=== PATIENT | female | born 1935 | race Caucasian/White ===

== ENCOUNTER → 2016-02-29 | Outpatient (CLI) | payer MEDICARE ==
[~2016-02-29] MED LIST: ACTI300C; AXID150C; BABY81CH; CETI10TA; COLA100C2; FERR325T; HYDR-727; MAG-TAB; MAGN500T2; MILKSUS; NAFCILLIN; PATANOL; PROZ40CA; SALISOL7; SING10TA31; TOPROL XL; VALS80CA; VICO5TAB; ZOCO40TA; [UNRECOGNIZED DRUG - OTHER]
[2016-02-29 18:30] LABS: INR 0.98
[2016-02-29 18:35] LABS: ALBUMIN 3.9 GM/DL (3.2-5.2); ALBUMIN/GLOBULIN RATIO 1.03 (1.00-1.93); BILIRUBIN,DIRECT 0.1 MG/DL (0.0-0.2); BILIRUBIN,TOTAL 0.4 MG/DL (0.2-1.0); TOTAL PROTEIN 7.7 GM/DL (6.4-8.2)
== END ==
LOC: M SMT 10:19
PROVIDERS: ATTEND Internal Medicine Gastroenterology
DX: R19.4 Change in bowel habit (principal); R10.13 Epigastric pain; R94.5 Abnormal results of liver function studies; K21.9 Gastro-esophageal reflux disease without esophagitis; K73.0 Chronic persistent hepatitis, not elsewhere classified

== ENCOUNTER → 2016-03-25 | Outpatient (REF) | payer MEDICARE | LOC: M LAB REF 11:24 | PROVIDERS: ATTEND Internal Medicine Gastroenterology | DX: K75.81 Nonalcoholic steatohepatitis (NASH) (principal); K74.3 Primary biliary cirrhosis; E55.9 Vitamin D deficiency, unspecified; K21.9 Gastro-esophageal reflux disease without esophagitis; R14.0 Abdominal distension (gaseous); R14.1 Gas pain; R10.13 Epigastric pain; R11.0 Nausea; R19.4 Change in bowel habit ==

== ENCOUNTER 2016-04-02 16:40 | Emergency (ER) | payer MEDICARE ==
--- NOTE | 2016-04-02 20:32 | REP ---
Clinical: Trauma. Technique: AP view of the pelvis with neutral and frog lateral views of the right hip. Findings: Symmetric degenerative changes are appreciated. No acute fracture or dislocation identified. Impression: Degenerative changes without acute fracture or dislocation. Signed by Israel Padron MD 04/02/2016 08:24 P
--- NOTE | 2016-04-02 20:35 | REP ---
Clinical: Trauma. Technique: Frontal view of the chest with multiple views of the bilateral hemithoraces. Comparison: Chest x-ray dated 12/10/2013. Findings: Frontal view of the chest demonstrates stable cardiomegaly and tortuous thoracic aorta. Lung ramos demonstrate diffuse chronic interstitial changes without acute consolidation, contusion, effusion, or pneumothorax. Skeletal structures demonstrate age-related osteopenia and degenerative changes. No obvious acute rib fracture identified. Impression: Chronic stable changes. No obvious acute rib fracture. Signed by Israel Padron MD 04/02/2016 08:26 P
--- NOTE | 2016-04-02 20:36 | REP ---
Clinical: Trauma. Technique: AP, lateral, bilateral oblique views of the lumbosacral spine. Comparison: 07/08/2009. Findings: Compression fracture at L2 is appreciated and relatively acute when compared to 2009. Correlation with physical examination and CT is warranted for further evaluation. The remainder of the examination demonstrates osteopenia and moderate to advanced multilevel degenerative changes. Impression: Compression fracture at L2 of indeterminate age. Correlation with physical examination is warranted and CT may be obtained for further investigation. Signed by Israel Padron MD 04/02/2016 08:28 P
--- NOTE | 2016-04-02 22:40 | REPUSA ---
COMPARISON: August 08, 2009. CT L-SPINE with reformations: L1 through S1: There is no acute fracture in this patient status post fall. Since the prior exam, there has been further loss of the L2-3 disc space with near ankylosis of the L 2 and L3 vertebral bodies, caused by prior episode of discitis. There is no CT evidence of acute infe ction. The L2-3 disc creates a posterior osteophyte that mildly narrows the central canal and neural foramina at this level. There has been further degeneration of the L4-5 and L5-S1 discs, now demonstrating vacuum phenomenon. At L4-5, there is a diffuse disc bulge which produces central canal and neural foraminal stenosis. At L5-S1, there is facet arthrosis. IMPRESSION: 1. No evidence of acute lumbar fracture. 2. 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 No evidence of acute infection by C T criteria at this time. 3. Multilevel degenerative disc disease which produces chronic neural encroachment at multiple levels .
--- NOTE | 2016-04-02 23:35 | EDDOCDS ---
Physician Documentation [facility] Name: Berenice Pruitt Age: 80 yrs Sex: Female : 1935 Arrival Date: 04/02/2016 Time: 16:40 Bed I6 / 28 Private MD: Wolf Bolton Disposition: 04/02/16 23:13 Discharged to Home/Self Care. Impression: Fall on same level due to ice and snow, Other sprain of right hip, Abrasion of left back wall of thorax - with contusion. - Condition is Stable. - Discharge Instructions: Rib Contusion, Fall Prevention and Home Safety, Hip Pain. - Medication Reconciliation, Local Pharmacy Hours form. - Follow up: Wolf Bolton; When: 4 - 5 days; Reason: Recheck today's complaints, Continuance of care. Follow up: Emergency Department; When: As needed; Reason: Fever > 102F, Trouble breathing. - Problem is new. - Symptoms are unchanged. - Notes: gentle activity as tolerated. take frequent deep breaths to keep lungs expanding. use walker for next for days to ensure stability with walking. call for a follow up with your physician Historical: - Allergies: Ciprofloxacin (Rash); Cortisone Acetate (Swelling); Neurontin (Sleepy); Niacin (red); IV Dye (Hives); - Home Meds: 1. aspirin 81 mg Oral TbEC once daily (Last dose: 04/02/2016 10:00) 2. magnesium oxide 400 mg Oral cap twice a day (Last dose: 04/02/2016 10:00) 3. Protonix 40 mg Oral TbEC 1 tab 2 times per day (Last dose: 04/02/2016 10:00) 4. Carafate 1 gram Oral tab as needed (Last dose: Unknown) 5. Zyrtec 10 mg Oral tab 1 tab once daily (Last dose: 04/02/2016 10:00) 6. losartan potassium 100 mg daily (Last dose: 04/02/2016 10:00) 7. Metoprolol Tartrate 12.5 Oral once daily (Last dose: 04/02/2016 10:00) 8. simvastatin 40 mg Oral tab 1 tab once daily (Last dose: 04/02/2016 10:00) 9. ursodiol 300 mg 2 capds Oral cap 2 times per day (Last dose: 04/02/2016 10:00) 10. fluoxetine 20 mg Oral cap 1 cap once daily (Last dose: 04/02/2016 10:00) 11. Vitamin D Oral 1,000 unit daily (Last dose: 04/02/2016 10:00) 12. Centrum Silver oral tab daily (Last dose: 04/02/2016 10:00) 13. breol inhaler daily daily (Last dose: 04/02/2016 10:00) 14. Pataday 0.2 % ophthalmic drop 1 drop once daily (Last dose: 04/02/2016 10:00) - PMHx: Asthma; Hypercholesterolemia; Primary Biliary Cirrhosis; Hypertension; GERD; - PSHx: Hysterectomy; Cholecystectomy; Tonsillectomy; Orthopedic Surgery; - Family history: Not pertinent. - : The pt / caregiver states he / she is not on anticoagulants. Home medication list is obtained from the patient. - Exposure Risk Screening:: None identified. Vital Signs: 04/02 16:42 BP 134 / 81; Pulse 67; Resp 17; Temp 96.2(O); Pulse Ox 95% on R/A; Weight 80.74 kg / lr2 178 lbs (R); Height 5 ft. 1 in. (154.94 cm) (R); Pain 10/10; 23:32 BP 162 / 90; Pulse 71; Resp 16; Temp 98.2(O); Pulse Ox 97% on R/A; jo3 16:42 Body Mass Index 33.63 (80.74 kg, 154.94 cm) lr2 MDM: 18:20 Rib Unilat W/PA Chest Only Ordered. EDMS 18:20 Hip,AP,LAT to include Pelvis Ordered. EDMS 18:22 Spine. Lumbosacral, Complete Ordered. EDMS 18:30 Financial registration complete. gjb 19:32 [facility] [place] was scanned into [employer] and attached to record. gjb 21:04 CT Spine, Lumbar W/o Contrast Ordered. EDMS Signatures: Dispatcher [employer] EDMS Vanessa LuaRN RN alicia3 Teddy Byrd PADebra PAPrettyC ar2 Hiral Mccloud RN RN Magi Gutierrez The chart was reviewed and I authenticate all verbal orders and agree with the evaluation and treatment provided.Attachments: 19:32 [facility] Payment Agreement gjb MTDD
--- NOTE | 2016-04-02 23:35 | EDDOCDS ---
Nurse's Notes [facility] Name: Berenice Pruitt Age: 80 yrs Sex: Female : 1935 Arrival Date: 04/02/2016 Time: 16:40 Bed I6 / 28 Private MD: Wolf Bolton Diagnosis: Fall on same level due to ice and snow;Other sprain of right hip;Abrasion of left back wall of thorax-with contusion Presentation: 04/02 16:54 Presenting complaint: Patient states: slipped on ice yesterday and fell down 2 steps. dsf pt c/o bilateral rib pain and it hurts to take a deep breath. pt also c/o right hip pain. Adult Sepsis Screening: The patient does not have new or worsening altered mentation. Patient's respiratory rate is less than 22. Systolic blood pressure is greater than 100. Patient has a qSOFA score of 0- Negative Sepsis Screen. Suicide/Homicide risk assessment- the patient denies having any suicidal and/or homicidal ideations and does not present with any other emotional, behavioral or mental health complaints. Status: Patient is not a marketing services specialist or dependent. Transition of care: patient was not received from another setting of care. 16:54 Acuity: MARIA INES Level 4 dsf 16:54 Method Of Arrival: Walkin/Carried/Asstd dsf Triage Assessment: 17:00 General: Appears in no apparent distress, Behavior is appropriate for age, cooperative. dsf Pain: Location: left lateral anterior chest and right lateral anterior chest Pain currently is 8 out of 10 on a pain scale. At worst was 10 out of 10 on a pain scale. Respiratory: Reports pain with respiration. Musculoskeletal: Reports pain in left lateral anterior chest and right lateral anterior chest. Historical: - Allergies: Ciprofloxacin (Rash); Cortisone Acetate (Swelling); Neurontin (Sleepy); Niacin (red); IV Dye (Hives); - Home Meds: 1. aspirin 81 mg Oral TbEC once daily (Last dose: 04/02/2016 10:00) 2. magnesium oxide 400 mg Oral cap twice a day (Last dose: 04/02/2016 10:00) 3. Protonix 40 mg Oral TbEC 1 tab 2 times per day (Last dose: 04/02/2016 10:00) 4. Carafate 1 gram Oral tab as needed (Last dose: Unknown) 5. Zyrtec 10 mg Oral tab 1 tab once daily (Last dose: 04/02/2016 10:00) 6. losartan potassium 100 mg daily (Last dose: 04/02/2016 10:00) 7. Metoprolol Tartrate 12.5 Oral once daily (Last dose: 04/02/2016 10:00) 8. simvastatin 40 mg Oral tab 1 tab once daily (Last dose: 04/02/2016 10:00) 9. ursodiol 300 mg 2 capds Oral cap 2 times per day (Last dose: 04/02/2016 10:00) 10. fluoxetine 20 mg Oral cap 1 cap once daily (Last dose: 04/02/2016 10:00) 11. Vitamin D Oral 1,000 unit daily (Last dose: 04/02/2016 10:00) 12. Centrum Silver oral tab daily (Last dose: 04/02/2016 10:00) 13. breol inhaler daily daily (Last dose: 04/02/2016 10:00) 14. Pataday 0.2 % ophthalmic drop 1 drop once daily (Last dose: 04/02/2016 10:00) - PMHx: Asthma; Hypercholesterolemia; Primary Biliary Cirrhosis; Hypertension; GERD; - PSHx: Hysterectomy; Cholecystectomy; Tonsillectomy; Orthopedic Surgery; - Family history: Not pertinent. - : The pt / caregiver states he / she is not on anticoagulants. Home medication list is obtained from the patient. - Exposure Risk Screening:: None identified. Screenin:32 Screening information is obtained from the patient. Fall risk: No risks identified. jo3 Assistance ADL's: requires no assistance with activities of daily living. Abuse/DV Screen: The patient / caregiver reports he/she is: not in a situation that causes fear, pain or injury. Nutritional screening: No deficits noted. Advance Directives: There is no active DNR order. home support is adequate. Assessment: 20:00 General: Appears in no apparent distress, Behavior is appropriate for age, cooperative. mb9 Respiratory: Airway is patent Respiratory effort is even, unlabored. 21:24 Reassessment: Patient appears in no apparent distress at this time. General: Appears mb9 comfortable, Behavior is appropriate for age, cooperative, pt sitting in wheelchair. pt requests to stay in wheelchair. . Respiratory: Airway is patent Respiratory effort is even, unlabored. 22:30 Reassessment: Patient appears in no apparent distress at this time. No significant jo3 changes noted at this time. Awaiting results for disposition. Aware of plan of care . 23:31 General: Appears in no apparent distress, Behavior is appropriate for age, cooperative, jo3 pleasant. Neurological: No deficits noted. Level of Consciousness is awake, alert, Oriented to person, place, time. Respiratory: Airway is patent Respiratory effort is even, unlabored. Vital Signs: 16:42 BP 134 / 81; Pulse 67; Resp 17; Temp 96.2(O); Pulse Ox 95% on R/A; Weight 80.74 kg (R); lr2 Height 5 ft. 1 in. (154.94 cm) (R); Pain 10/10; 23:32 BP 162 / 90; Pulse 71; Resp 16; Temp 98.2(O); Pulse Ox 97% on R/A; jo3 16:42 Body Mass Index 33.63 (80.74 kg, 154.94 cm) lr2 Vitals: 16:42 Log In Time: April 02, 2016 at 16:40. lr2 ED Course: 16:42 Patient visited by Jennifer Mathur. lr2 16:42 Wolf Bolton is Private Physician. lr2 16:42 Patient moved to Waiting lr2 16:44 Patient moved to Pre RCE lr2 16:55 Triage Initiated dsf 17:59 [facility] ar2 17:59 Eulalia Trujillo MD is Attending Physician. ar2 17:59 Patient moved to I ar2 18:05 Patient visited by Mesha Hernandez RN. dls 18:11 Patient visited by Teddy Byrd PA-C. ar2 19:05 Patient visited by Dom Franco PCA. kb5 19:32 [facility] [place] Payment Agreement was scanned into [employer] and attached to record. gjb 20:00 Patient visited by Dom Franco PCA. kb5 21:06 Hip,AP,LAT to include Pelvis Returned. EDMS 21:06 Rib Unilat W/PA Chest Only Returned. EDMS 21:06 Spine. Lumbosacral, Complete Returned. EDMS 21:11 Patient visited by Dom Franco PCA. kb5 21:50 Patient visited by Dom Franco PCA. kb5 22:57 CT Spine, Lumbar W/o Contrast Returned. EDMS 23:12 Wolf Bolton is Referral Physician. ar2 23:20 Patient visited by Dom Franco PCA. kb5 23:32 The patient / caregiver is instructed regarding the plan of care and ED course. jo3 23:32 No IV's were initiated during this patient's visit. No procedures done that require jo3 assistance. Order Results: Radiology Order: Rib Unilat W/PA Chest Only Test: Rib Unilat W/PA Chest Only REASON FOR EXAMINATION: trauma, lateral/anterior lower ribs; Clinical: Trauma.; ; Technique: Frontal view of the chest with multiple views of the bilateral; hemithoraces.; ; Comparison: Chest x-ray dated 12/10/2013.; ; Findings:; Frontal view of the chest demonstrates stable cardiomegaly and tortuous thoracic; aorta. Lung ramos demonstrate diffuse chronic interstitial changes without; acute consolidation, contusion, effusion, or pneumothorax. Skeletal structures; demonstrate age-related osteopenia and degenerative changes. No obvious acute; rib fracture identified.; ; Impression:; Chronic stable changes.; No obvious acute rib fracture.; ; ; Signed by; Israel Padron MD 04/02/2016 08:26 P; Radiology Order: Hip,AP,LAT to include Pelvis Test: Hip,AP,LAT to include Pelvis REASON FOR EXAMINATION: Trauma; Clinical: Trauma.; ; Technique: AP view of the pelvis with neutral and frog lateral views of the; right hip.; ; Findings:; Symmetric degenerative changes are appreciated. No acute fracture or dislocation; identified.; ; Impression:; Degenerative changes without acute fracture or dislocation.; ; ; Signed by; Israel Padron MD 04/02/2016 08:24 P; Radiology Order: Spine. Lumbosacral, Complete Test: Spine. Lumbosacral, Complete REASON FOR EXAMINATION: Trauma; Clinical: Trauma.; ; Technique: AP, lateral, bilateral oblique views of the lumbosacral spine.; ; Comparison: 07/08/2009.; ; Findings:; Compression fracture at L2 is appreciated and relatively acute when compared to; 2009. Correlation with physical examination and CT is warranted for further; evaluation. The remainder of the examination demonstrates osteopenia and; moderate to advanced multilevel degenerative changes.; ; Impression:; Compression fracture at L2 of indeterminate age. Correlation with physical; examination is warranted and CT may be obtained for further investigation.; ; ; Signed by; Israel Padron MD 04/02/2016 08:28 P; Radiology Order: CT Spine, Lumbar W/o Contrast Test: CT Spine, Lumbar W/o Contrast REASON FOR EXAMINATION: L2 compression fx; ; COMPARISON: August 08, 2009.; ; CT L-SPINE with reformations:; ; L1 through S1:; There is no acute fracture in this patient status post fall.; Since the prior exam, there has been further loss of the L2-3 disc space with near ankylosis of the L; 2 and L3 vertebral bodies, caused by prior episode of discitis. There is no CT evidence of acute infe; ction. The L2-3 disc creates a posterior osteophyte that mildly narrows the central canal and neural; foramina at this level.; ; There has been further degeneration of the L4-5 and L5-S1 discs, now demonstrating vacuum phenomenon.; ; ; At L4-5, there is a diffuse disc bulge which produces central canal and neural foraminal stenosis.; ; At L5-S1, there is facet arthrosis.; ; ; IMPRESSION:; 1. No evidence of acute lumbar fracture.; 2. 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 No evidence of acute infection by C; T criteria at this time.; 3. Multilevel degenerative disc disease which produces chronic neural encroachment at multiple levels; .; ; Outcome: 23:13 Discharge ordered by Provider. ar2 23:32 Discharge Assessment: Patient awake, alert and oriented x 3. No cognitive and/or jo3 functional deficits noted. Patient verbalized understanding of disposition instructions. patient administered narcotics - no. The following High Risk Discharge criteria are identified: None. Discharged to home ambulatory, with family. Condition: stable. Discharge instructions given to patient, Instructed on discharge instructions, follow up and referral plans. Demonstrated understanding of instructions, Pt was receptive of discharge instructions/ teaching. Property sent home with patient. 23:34 CT Study completed. jo3 23:34 Patient left the ED. jo3 Signatures: Dispatcher [employer] EDMesha Mitchell, RN RN Vanessa PalumboRN RN jo3 Dom Franco, [employer] kb5 Teddy Byrd, PADebra PAHiral PadronRN RN Case BassettRN RN mb9 Magi Santana Laura lr2 Corrections: (The following items were deleted from the chart) 23:34 23:32 No special radiology studies were completed jo3 jo3 MTDD
--- NOTE | 2016-04-05 00:35 | EDDOCDS ---
Physician Documentation [facility] Name: Berenice Pruitt Age: 80 yrs Sex: Female : 1935 Arrival Date: 04/02/2016 Time: 16:40 Bed I6 / 28 Private MD: Wolf Bolton Disposition: 04/02/16 23:13 Discharged to Home/Self Care. Impression: Fall on same level due to ice and snow, Other sprain of right hip, Abrasion of left back wall of thorax - with contusion. - Condition is Stable. - Discharge Instructions: Rib Contusion, Fall Prevention and Home Safety, Hip Pain. - Medication Reconciliation, Local Pharmacy Hours form. - Follow up: Wolf Bolton; When: 4 - 5 days; Reason: Recheck today's complaints, Continuance of care. Follow up: Emergency Department; When: As needed; Reason: Fever > 102F, Trouble breathing. - Problem is new. - Symptoms are unchanged. - Notes: gentle activity as tolerated. take frequent deep breaths to keep lungs expanding. use walker for next for days to ensure stability with walking. call for a follow up with your physician Historical: - Allergies: Ciprofloxacin (Rash); Cortisone Acetate (Swelling); Neurontin (Sleepy); Niacin (red); IV Dye (Hives); - Home Meds: 1. aspirin 81 mg Oral TbEC once daily (Last dose: 04/02/2016 10:00) 2. magnesium oxide 400 mg Oral cap twice a day (Last dose: 04/02/2016 10:00) 3. Protonix 40 mg Oral TbEC 1 tab 2 times per day (Last dose: 04/02/2016 10:00) 4. Carafate 1 gram Oral tab as needed (Last dose: Unknown) 5. Zyrtec 10 mg Oral tab 1 tab once daily (Last dose: 04/02/2016 10:00) 6. losartan potassium 100 mg daily (Last dose: 04/02/2016 10:00) 7. Metoprolol Tartrate 12.5 Oral once daily (Last dose: 04/02/2016 10:00) 8. simvastatin 40 mg Oral tab 1 tab once daily (Last dose: 04/02/2016 10:00) 9. ursodiol 300 mg 2 capds Oral cap 2 times per day (Last dose: 04/02/2016 10:00) 10. fluoxetine 20 mg Oral cap 1 cap once daily (Last dose: 04/02/2016 10:00) 11. Vitamin D Oral 1,000 unit daily (Last dose: 04/02/2016 10:00) 12. Centrum Silver oral tab daily (Last dose: 04/02/2016 10:00) 13. breol inhaler daily daily (Last dose: 04/02/2016 10:00) 14. Pataday 0.2 % ophthalmic drop 1 drop once daily (Last dose: 04/02/2016 10:00) - PMHx: Asthma; Hypercholesterolemia; Primary Biliary Cirrhosis; Hypertension; GERD; - PSHx: Hysterectomy; Cholecystectomy; Tonsillectomy; Orthopedic Surgery; - Family history: Not pertinent. - : The pt / caregiver states he / she is not on anticoagulants. Home medication list is obtained from the patient. - Exposure Risk Screening:: None identified. Vital Signs: 04/02 16:42 BP 134 / 81; Pulse 67; Resp 17; Temp 96.2(O); Pulse Ox 95% on R/A; Weight 80.74 kg / lr2 178 lbs (R); Height 5 ft. 1 in. (154.94 cm) (R); Pain 10/10; 23:32 BP 162 / 90; Pulse 71; Resp 16; Temp 98.2(O); Pulse Ox 97% on R/A; jo3 16:42 Body Mass Index 33.63 (80.74 kg, 154.94 cm) lr2 MDM: 18:20 Rib Unilat W/PA Chest Only Ordered. EDMS 18:20 Hip,AP,LAT to include Pelvis Ordered. EDMS 18:22 Spine. Lumbosacral, Complete Ordered. EDMS 18:30 Financial registration complete. gjb 19:32 [facility] Payment Agreement was scanned into [employer] and attached to record. gjb 21:04 CT Spine, Lumbar W/o Contrast Ordered. EDMS 04/03 12:12 T-Sheet-- Draft Copy was scanned into [employer] and attached to record. lg 04/04 11:08 Radiology Report was scanned into [employer] and attached to record. gb Signatures: Dispatcher [employer] EDMS Madelin Elizbaeth, Reg Reg gb Gonzalo Lockhart, Reg Reg lg Vanessa LuaRN RN jo3 Teddy Byrd PA-C PA-C ar2 Hiral Mccloud RN RN Magi Gutierrez The chart was reviewed and I authenticate all verbal orders and agree with the evaluation and treatment provided.Attachments: 04/02 19:32 [facility] Payment Agreement gjb 04/03 12:12 T-Sheet-- Draft Copy lg Chart Complete MTDD
--- NOTE | 2016-04-05 00:35 | EDDOCDS ---
Physician Documentation [facility] Name: Berenice Pruitt Age: 80 yrs Sex: Female : 1935 Arrival Date: 04/02/2016 Time: 16:40 Bed I6 / 28 Private MD: Wolf Bolton Disposition: 04/02/16 23:13 Discharged to Home/Self Care. Impression: Fall on same level due to ice and snow, Other sprain of right hip, Abrasion of left back wall of thorax - with contusion. - Condition is Stable. - Discharge Instructions: Rib Contusion, Fall Prevention and Home Safety, Hip Pain. - Medication Reconciliation, Local Pharmacy Hours form. - Follow up: Wolf Bolton; When: 4 - 5 days; Reason: Recheck today's complaints, Continuance of care. Follow up: Emergency Department; When: As needed; Reason: Fever > 102F, Trouble breathing. - Problem is new. - Symptoms are unchanged. - Notes: gentle activity as tolerated. take frequent deep breaths to keep lungs expanding. use walker for next for days to ensure stability with walking. call for a follow up with your physician Historical: - Allergies: Ciprofloxacin (Rash); Cortisone Acetate (Swelling); Neurontin (Sleepy); Niacin (red); IV Dye (Hives); - Home Meds: 1. aspirin 81 mg Oral TbEC once daily (Last dose: 04/02/2016 10:00) 2. magnesium oxide 400 mg Oral cap twice a day (Last dose: 04/02/2016 10:00) 3. Protonix 40 mg Oral TbEC 1 tab 2 times per day (Last dose: 04/02/2016 10:00) 4. Carafate 1 gram Oral tab as needed (Last dose: Unknown) 5. Zyrtec 10 mg Oral tab 1 tab once daily (Last dose: 04/02/2016 10:00) 6. losartan potassium 100 mg daily (Last dose: 04/02/2016 10:00) 7. Metoprolol Tartrate 12.5 Oral once daily (Last dose: 04/02/2016 10:00) 8. simvastatin 40 mg Oral tab 1 tab once daily (Last dose: 04/02/2016 10:00) 9. ursodiol 300 mg 2 capds Oral cap 2 times per day (Last dose: 04/02/2016 10:00) 10. fluoxetine 20 mg Oral cap 1 cap once daily (Last dose: 04/02/2016 10:00) 11. Vitamin D Oral 1,000 unit daily (Last dose: 04/02/2016 10:00) 12. Centrum Silver oral tab daily (Last dose: 04/02/2016 10:00) 13. breol inhaler daily daily (Last dose: 04/02/2016 10:00) 14. Pataday 0.2 % ophthalmic drop 1 drop once daily (Last dose: 04/02/2016 10:00) - PMHx: Asthma; Hypercholesterolemia; Primary Biliary Cirrhosis; Hypertension; GERD; - PSHx: Hysterectomy; Cholecystectomy; Tonsillectomy; Orthopedic Surgery; - Family history: Not pertinent. - : The pt / caregiver states he / she is not on anticoagulants. Home medication list is obtained from the patient. - Exposure Risk Screening:: None identified. Vital Signs: 04/02 16:42 BP 134 / 81; Pulse 67; Resp 17; Temp 96.2(O); Pulse Ox 95% on R/A; Weight 80.74 kg / lr2 178 lbs (R); Height 5 ft. 1 in. (154.94 cm) (R); Pain 10/10; 23:32 BP 162 / 90; Pulse 71; Resp 16; Temp 98.2(O); Pulse Ox 97% on R/A; jo3 16:42 Body Mass Index 33.63 (80.74 kg, 154.94 cm) lr2 MDM: 18:20 Rib Unilat W/PA Chest Only Ordered. EDMS 18:20 Hip,AP,LAT to include Pelvis Ordered. EDMS 18:22 Spine. Lumbosacral, Complete Ordered. EDMS 18:30 Financial registration complete. gjb 19:32 [facility] Payment Agreement was scanned into [employer] and attached to record. gjb 21:04 CT Spine, Lumbar W/o Contrast Ordered. EDMS 04/03 12:12 T-Sheet-- Draft Copy was scanned into [employer] and attached to record. lg 04/04 11:08 Radiology Report was scanned into [employer] and attached to record. gb Signatures: Dispatcher [employer] EDMS Madelin Elizabeth, Reg Reg gb Gonzalo Lockhart, Reg Reg lg Vanessa LuaRN RN jo3 Teddy Byrd PA-C PA-C ar2 Hiral Mccloud RN RN Magi Gutierrez The chart was reviewed and I authenticate all verbal orders and agree with the evaluation and treatment provided.Attachments: 04/02 19:32 [facility] Payment Agreement gjb 04/03 12:12 T-Sheet-- Draft Copy lg Chart Complete MTDD
--- NOTE | 2016-04-05 00:35 | EDDOCDS ---
Nurse's Notes [facility] Name: Berenice Pruitt Age: 80 yrs Sex: Female : 1935 Arrival Date: 04/02/2016 Time: 16:40 Bed I6 / 28 Private MD: Wolf Bolton Diagnosis: Fall on same level due to ice and snow;Other sprain of right hip;Abrasion of left back wall of thorax-with contusion Presentation: 04/02 16:54 Presenting complaint: Patient states: slipped on ice yesterday and fell down 2 steps. dsf pt c/o bilateral rib pain and it hurts to take a deep breath. pt also c/o right hip pain. Adult Sepsis Screening: The patient does not have new or worsening altered mentation. Patient's respiratory rate is less than 22. Systolic blood pressure is greater than 100. Patient has a qSOFA score of 0- Negative Sepsis Screen. Suicide/Homicide risk assessment- the patient denies having any suicidal and/or homicidal ideations and does not present with any other emotional, behavioral or mental health complaints. Status: Patient is not a customer service assistant or dependent. Transition of care: patient was not received from another setting of care. 16:54 Acuity: MARIA INES Level 4 dsf 16:54 Method Of Arrival: Walkin/Carried/Asstd dsf Triage Assessment: 17:00 General: Appears in no apparent distress, Behavior is appropriate for age, cooperative. dsf Pain: Location: left lateral anterior chest and right lateral anterior chest Pain currently is 8 out of 10 on a pain scale. At worst was 10 out of 10 on a pain scale. Respiratory: Reports pain with respiration. Musculoskeletal: Reports pain in left lateral anterior chest and right lateral anterior chest. Historical: - Allergies: Ciprofloxacin (Rash); Cortisone Acetate (Swelling); Neurontin (Sleepy); Niacin (red); IV Dye (Hives); - Home Meds: 1. aspirin 81 mg Oral TbEC once daily (Last dose: 04/02/2016 10:00) 2. magnesium oxide 400 mg Oral cap twice a day (Last dose: 04/02/2016 10:00) 3. Protonix 40 mg Oral TbEC 1 tab 2 times per day (Last dose: 04/02/2016 10:00) 4. Carafate 1 gram Oral tab as needed (Last dose: Unknown) 5. Zyrtec 10 mg Oral tab 1 tab once daily (Last dose: 04/02/2016 10:00) 6. losartan potassium 100 mg daily (Last dose: 04/02/2016 10:00) 7. Metoprolol Tartrate 12.5 Oral once daily (Last dose: 04/02/2016 10:00) 8. simvastatin 40 mg Oral tab 1 tab once daily (Last dose: 04/02/2016 10:00) 9. ursodiol 300 mg 2 capds Oral cap 2 times per day (Last dose: 04/02/2016 10:00) 10. fluoxetine 20 mg Oral cap 1 cap once daily (Last dose: 04/02/2016 10:00) 11. Vitamin D Oral 1,000 unit daily (Last dose: 04/02/2016 10:00) 12. Centrum Silver oral tab daily (Last dose: 04/02/2016 10:00) 13. breol inhaler daily daily (Last dose: 04/02/2016 10:00) 14. Pataday 0.2 % ophthalmic drop 1 drop once daily (Last dose: 04/02/2016 10:00) - PMHx: Asthma; Hypercholesterolemia; Primary Biliary Cirrhosis; Hypertension; GERD; - PSHx: Hysterectomy; Cholecystectomy; Tonsillectomy; Orthopedic Surgery; - Family history: Not pertinent. - : The pt / caregiver states he / she is not on anticoagulants. Home medication list is obtained from the patient. - Exposure Risk Screening:: None identified. Screenin:32 Screening information is obtained from the patient. Fall risk: No risks identified. jo3 Assistance ADL's: requires no assistance with activities of daily living. Abuse/DV Screen: The patient / caregiver reports he/she is: not in a situation that causes fear, pain or injury. Nutritional screening: No deficits noted. Advance Directives: There is no active DNR order. home support is adequate. Assessment: 20:00 General: Appears in no apparent distress, Behavior is appropriate for age, cooperative. mb9 Respiratory: Airway is patent Respiratory effort is even, unlabored. 21:24 Reassessment: Patient appears in no apparent distress at this time. General: Appears mb9 comfortable, Behavior is appropriate for age, cooperative, pt sitting in wheelchair. pt requests to stay in wheelchair. . Respiratory: Airway is patent Respiratory effort is even, unlabored. 22:30 Reassessment: Patient appears in no apparent distress at this time. No significant jo3 changes noted at this time. Awaiting results for disposition. Aware of plan of care . 23:31 General: Appears in no apparent distress, Behavior is appropriate for age, cooperative, jo3 pleasant. Neurological: No deficits noted. Level of Consciousness is awake, alert, Oriented to person, place, time. Respiratory: Airway is patent Respiratory effort is even, unlabored. Vital Signs: 16:42 BP 134 / 81; Pulse 67; Resp 17; Temp 96.2(O); Pulse Ox 95% on R/A; Weight 80.74 kg (R); lr2 Height 5 ft. 1 in. (154.94 cm) (R); Pain 10/10; 23:32 BP 162 / 90; Pulse 71; Resp 16; Temp 98.2(O); Pulse Ox 97% on R/A; jo3 16:42 Body Mass Index 33.63 (80.74 kg, 154.94 cm) lr2 Vitals: 16:42 Log In Time: April 02, 2016 at 16:40. lr2 ED Course: 16:42 Patient visited by Jennifer Mathur. lr2 16:42 Wolf Bolton is Private Physician. lr2 16:42 Patient moved to Waiting lr2 16:44 Patient moved to Pre RCE lr2 16:55 Triage Initiated dsf 17:59 [facility] ar2 17:59 Eulalia Trujillo MD is Attending Physician. ar2 17:59 Patient moved to I ar2 18:05 Patient visited by Mesha Hernandez RN. dls 18:11 Patient visited by Teddy Byrd PA-C. ar2 19:05 Patient visited by Dom Franco PCA. kb5 19:32 [facility] Payment Agreement was scanned into [employer] and attached to record. gjb 20:00 Patient visited by Dom Franco PCA. kb5 21:06 Hip,AP,LAT to include Pelvis Returned. EDMS 21:06 Rib Unilat W/PA Chest Only Returned. EDMS 21:06 Spine. Lumbosacral, Complete Returned. EDMS 21:11 Patient visited by Dom Franco PCA. kb5 21:50 Patient visited by Dom Franco PCA. kb5 22:57 CT Spine, Lumbar W/o Contrast Returned. EDMS 23:12 Wolf Bolton is Referral Physician. ar2 23:20 Patient visited by Dom Franco PCA. kb5 23:32 The patient / caregiver is instructed regarding the plan of care and ED course. jo3 23:32 No IV's were initiated during this patient's visit. No procedures done that require jo3 assistance. 04/03 12:12 T-Sheet-- Draft Copy was scanned into [employer] and attached to record. 04/04 11:08 Radiology Report was scanned into [employer] and attached to record. gb Order Results: Radiology Order: Rib Unilat W/PA Chest Only Test: Rib Unilat W/PA Chest Only REASON FOR EXAMINATION: trauma, lateral/anterior lower ribs; Clinical: Trauma.; ; Technique: Frontal view of the chest with multiple views of the bilateral; hemithoraces.; ; Comparison: Chest x-ray dated 12/10/2013.; ; Findings:; Frontal view of the chest demonstrates stable cardiomegaly and tortuous thoracic; aorta. Lung ramos demonstrate diffuse chronic interstitial changes without; acute consolidation, contusion, effusion, or pneumothorax. Skeletal structures; demonstrate age-related osteopenia and degenerative changes. No obvious acute; rib fracture identified.; ; Impression:; Chronic stable changes.; No obvious acute rib fracture.; ; ; Signed by; Israel Padron MD 04/02/2016 08:26 P; Radiology Order: Hip,AP,LAT to include Pelvis Test: Hip,AP,LAT to include Pelvis REASON FOR EXAMINATION: Trauma; Clinical: Trauma.; ; Technique: AP view of the pelvis with neutral and frog lateral views of the; right hip.; ; Findings:; Symmetric degenerative changes are appreciated. No acute fracture or dislocation; identified.; ; Impression:; Degenerative changes without acute fracture or dislocation.; ; ; Signed by; Israel Padron MD 04/02/2016 08:24 P; Radiology Order: Spine. Lumbosacral, Complete Test: Spine. Lumbosacral, Complete REASON FOR EXAMINATION: Trauma; Clinical: Trauma.; ; Technique: AP, lateral, bilateral oblique views of the lumbosacral spine.; ; Comparison: 07/08/2009.; ; Findings:; Compression fracture at L2 is appreciated and relatively acute when compared to; 2009. Correlation with physical examination and CT is warranted for further; evaluation. The remainder of the examination demonstrates osteopenia and; moderate to advanced multilevel degenerative changes.; ; Impression:; Compression fracture at L2 of indeterminate age. Correlation with physical; examination is warranted and CT may be obtained for further investigation.; ; ; Signed by; Israel Padron MD 04/02/2016 08:28 P; Radiology Order: CT Spine, Lumbar W/o Contrast Test: CT Spine, Lumbar W/o Contrast REASON FOR EXAMINATION: L2 compression fx; ; COMPARISON: August 08, 2009.; ; CT L-SPINE with reformations:; ; L1 through S1:; There is no acute fracture in this patient status post fall.; Since the prior exam, there has been further loss of the L2-3 disc space with near ankylosis of the L; 2 and L3 vertebral bodies, caused by prior episode of discitis. There is no CT evidence of acute infe; ction. The L2-3 disc creates a posterior osteophyte that mildly narrows the central canal and neural; foramina at this level.; ; There has been further degeneration of the L4-5 and L5-S1 discs, now demonstrating vacuum phenomenon.; ; ; At L4-5, there is a diffuse disc bulge which produces central canal and neural foraminal stenosis.; ; At L5-S1, there is facet arthrosis.; ; ; IMPRESSION:; 1. No evidence of acute lumbar fracture.; 2. 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 No evidence of acute infection by C; T criteria at this time.; 3. Multilevel degenerative disc disease which produces chronic neural encroachment at multiple levels; .; ; Outcome: 04/02 23:13 Discharge ordered by Provider. ar2 23:32 Discharge Assessment: Patient awake, alert and oriented x 3. No cognitive and/or jo3 functional deficits noted. Patient verbalized understanding of disposition instructions. patient administered narcotics - no. The following High Risk Discharge criteria are identified: None. Discharged to home ambulatory, with family. Condition: stable. Discharge instructions given to patient, Instructed on discharge instructions, follow up and referral plans. Demonstrated understanding of instructions, Pt was receptive of discharge instructions/ teaching. Property sent home with patient. 23:34 CT Study completed. jo3 23:34 Patient left the ED. jo3 Signatures: Dispatcher [employer] EDMS Mesha Hernandez, RN RN dls Madelin Elizabeth, Reg Reg gb Gonzalo Lockhart, Reg Reg lg Vanessa Lua RN RN jo3 Dom Franco, PATIENT OFFICE REP PATIENT OFFICE REP kb5 Teddy Byrd, PA-Tuan PA-Tuan ar2 Hiral MccloudRN RN Case BassettRN RN [id number] Magi Santana Laura lr2 Corrections: (The following items were deleted from the chart) 23:34 23:32 No special radiology studies were completed jo3 jo3 Chart Complete MTDD
== END 2016-04-02 23:34 | disposition home or self-care (01) ==
LOC: M ED 16:40
DX: S73.101A Unspecified sprain of right hip, initial encounter (principal); S20.211A Contusion of right front wall of thorax, initial encounter; S20.212A Contusion of left front wall of thorax, initial encounter; W00.0XXA Fall on same level due to ice and snow, initial encounter; Y92.018 Other place in single-family (private) house as the place of occurrence of the external cause; Y93.89 Activity, other specified; Y99.8 Other external cause status; M51.26 Other intervertebral disc displacement, lumbar region; I10 Essential (primary) hypertension; J45.909 Unspecified asthma, uncomplicated; E78.00 Pure hypercholesterolemia, unspecified; K21.9 Gastro-esophageal reflux disease without esophagitis; K74.3 Primary biliary cirrhosis; Z79.899 Other long term (current) drug therapy; Z79.82 Long term (current) use of aspirin; Z79.51 Long term (current) use of inhaled steroids; Z88.1 Allergy status to other antibiotic agents; Z88.8 Allergy status to other drugs, medicaments and biological substances; Z91.041 Radiographic dye allergy status

== ENCOUNTER → 2016-04-04 | Outpatient (REF) | payer MEDICARE | LOC: M LAB REF 16:54 | PROVIDERS: ATTEND Internal Medicine Nephrology | DX: N39.0 Urinary tract infection, site not specified (principal) ==

== ENCOUNTER → 2016-06-17 | Outpatient (REF) | payer MEDICARE ==
[2016-06-17 11:51] LABS: MEAN CORPUSCULAR HEMOGLOBIN 31.9 pg (27.0-33.0); MEAN CORPUSCULAR HGB CONC 33.7 g/dl (32.0-36.5); MEAN CORPUSCULAR VOLUME 94.9 fl (80.0-96.0); RED CELL DISTRIBUTION WIDTH 13.1 % (11.5-14.5); WHITE BLOOD COUNT 6.1 K/mm3 (4.0-10.0)
[2016-06-17 12:02] LABS: ALBUMIN 3.9 GM/DL (3.2-5.2); ALBUMIN/GLOBULIN RATIO 1.05 (1.00-1.93); BILIRUBIN,TOTAL 0.5 MG/DL (0.2-1.0); CALCIUM LEVEL 9.5 MG/DL (8.8-10.2); CREATININE FOR GFR 1.42 MG/DL (0.55-1.02); GLOMERULAR FILTRATION RATE 37.8 (>32); MAGNESIUM LEVEL 1.8 MG/DL (1.8-2.4); POTASSIUM SERUM 4.3 MEQ/L (3.5-5.1); TOTAL PROTEIN 7.6 GM/DL (6.4-8.2)
== END ==
LOC: M SFHCPLAZ 08:36
PROVIDERS: ATTEND Internal Medicine
DX: K74.3 Primary biliary cirrhosis (principal); R73.01 Impaired fasting glucose; E78.00 Pure hypercholesterolemia, unspecified; I10 Essential (primary) hypertension

== ENCOUNTER → 2016-09-02 | Outpatient (CLI) | payer MEDICARE ==
[2016-09-02 18:56] LABS: ALBUMIN 3.9 GM/DL (3.2-5.2); ALBUMIN/GLOBULIN RATIO 1.11 (1.00-1.93); BILIRUBIN,DIRECT 0.1 MG/DL (0.0-0.2); BILIRUBIN,TOTAL 0.5 MG/DL (0.2-1.0); TOTAL PROTEIN 7.4 GM/DL (6.4-8.2)
== END ==
LOC: M SMT 13:10
PROVIDERS: ATTEND Internal Medicine Gastroenterology
DX: K75.81 Nonalcoholic steatohepatitis (NASH) (principal); K74.3 Primary biliary cirrhosis; E55.9 Vitamin D deficiency, unspecified; K21.9 Gastro-esophageal reflux disease without esophagitis; R12 Heartburn; R14.0 Abdominal distension (gaseous); R14.1 Gas pain; R10.13 Epigastric pain; R11.0 Nausea; R19.4 Change in bowel habit

== ENCOUNTER → 2016-09-12 | Outpatient (REF) | payer MEDICARE | LOC: M LAB REF 17:26 | PROVIDERS: ATTEND Internal Medicine Nephrology | DX: N39.0 Urinary tract infection, site not specified (principal) ==

== ENCOUNTER → 2016-09-12 | Outpatient (REF) | payer MEDICARE | LOC: M LAB REF 12:36 | PROVIDERS: ATTEND Internal Medicine Gastroenterology | DX: K75.81 Nonalcoholic steatohepatitis (NASH) (principal); R10.13 Epigastric pain; R11.0 Nausea; K74.3 Primary biliary cirrhosis; E55.9 Vitamin D deficiency, unspecified; K21.9 Gastro-esophageal reflux disease without esophagitis; R12 Heartburn; R14.0 Abdominal distension (gaseous); R14.1 Gas pain; R19.4 Change in bowel habit ==

== ENCOUNTER → 2016-12-23 | Outpatient (REF) | payer MEDICARE ==
[2016-12-23 11:49] LABS: MEAN CORPUSCULAR HEMOGLOBIN 30.7 pg (27.0-33.0); MEAN CORPUSCULAR HGB CONC 32.9 g/dl (32.0-36.5); MEAN CORPUSCULAR VOLUME 93.2 fl (80.0-96.0); PLATELET COUNT, AUTOMATED 220 10^3/uL (150-450); RED CELL DISTRIBUTION WIDTH 12.6 % (11.5-14.5); WHITE BLOOD COUNT 5.5 10^3/uL (4.0-10.0)
[2016-12-23 12:09] LABS: ALBUMIN 3.6 GM/DL (3.2-5.2); ALBUMIN/GLOBULIN RATIO 1.09 (1.00-1.93); BILIRUBIN,TOTAL 0.4 MG/DL (0.2-1.0); CALCIUM LEVEL 10.2 MG/DL (8.8-10.2); CREATININE FOR GFR 1.42 MG/DL (0.55-1.02); GLOMERULAR FILTRATION RATE 37.7 (>32); MAGNESIUM LEVEL 1.8 MG/DL (1.8-2.4); POTASSIUM SERUM 4.3 MEQ/L (3.5-5.1); TOTAL PROTEIN 6.9 GM/DL (6.4-8.2)
== END ==
LOC: M SFHCPLAZ 08:22
PROVIDERS: ATTEND Internal Medicine
DX: K74.3 Primary biliary cirrhosis (principal); R73.01 Impaired fasting glucose; E78.00 Pure hypercholesterolemia, unspecified; I10 Essential (primary) hypertension

== ENCOUNTER → 2017-03-20 | Outpatient (REF) | payer MEDICARE | LOC: M LAB REF 13:02 | DX: N39.0 Urinary tract infection, site not specified (principal) | CPT/HCPCS: 87186 ==

== ENCOUNTER → 2017-06-28 | Outpatient (REF) | payer MEDICARE ==
[2017-06-28 12:56] LABS: ALBUMIN 3.8 GM/DL (3.2-5.2); ALBUMIN/GLOBULIN RATIO 0.97 (1.00-1.93); ALKALINE PHOSPHATASE 159 U/L (45-117); ALT/SGPT 60 U/L (12-78); ANION GAP 8 MEQ/L (8-16); AST/SGOT 46 U/L (7-37); BILIRUBIN,TOTAL 0.4 MG/DL (0.2-1.0); BLOOD UREA NITROGEN 30 MG/DL (7-18); CALCIUM LEVEL 9.6 MG/DL (8.8-10.2); CARBON DIOXIDE LEVEL 26 MEQ/L (21-32); CHLORIDE LEVEL 108 MEQ/L (98-107); CHOLESTEROL LEVEL 160 MG/DL (<200); CREATININE FOR GFR 1.28 MG/DL (0.55-1.30); GLOMERULAR FILTRATION RATE 42.5 (>32); GLUCOSE, FASTING 135 MG/DL (70-100); HDL CHOLESTEROL 43 MG/DL (>40); LDL CHOLESTEROL 76.8 MG/DL (<100); MAGNESIUM LEVEL 2.1 MG/DL (1.8-2.4); NON-HDL-C 117 MG/DL; POTASSIUM SERUM 4.4 MEQ/L (3.5-5.1); SODIUM LEVEL 142 MEQ/L (136-145); TOTAL PROTEIN 7.7 GM/DL (6.4-8.2); TRIGLYCERIDES LEVEL 201 MG/DL (<150)
[2017-06-28 13:49] LABS: ESTIMATED AVERAGE GLUCOSE 134 MG/DL (60-110); HEMOGLOBIN A1c 6.3 %
[2017-06-30 11:50] LABS: ALPHA FETOPROTEIN TUMOR QUANT 2.4 NG/ML (<8.1)
== END ==
LOC: M SFHCPLAZ 08:29
DX: K74.3 Primary biliary cirrhosis (principal); I10 Essential (primary) hypertension; E11.9 Type 2 diabetes mellitus without complications; E78.00 Pure hypercholesterolemia, unspecified
CPT/HCPCS: 83735

== ENCOUNTER → 2018-01-02 | Outpatient (REF) | payer MEDICARE ==
[2018-01-02 13:56] LABS: ESTIMATED AVERAGE GLUCOSE 131 MG/DL (60-110); HEMOGLOBIN A1c 6.2 %
[2018-01-02 14:27] LABS: ALPHA FETOPROTEIN TUMOR QUANT 5.3 NG/ML (<8.1)
[2018-01-02 14:30] LABS: BLOOD UREA NITROGEN 27 MG/DL (7-18); CARBON DIOXIDE LEVEL 27 MEQ/L (21-32); CHLORIDE LEVEL 106 MEQ/L (98-107); GLOMERULAR FILTRATION RATE 41.6 (>32); GLUCOSE, FASTING 128 MG/DL (70-100); POTASSIUM SERUM 4.6 MEQ/L (3.5-5.1); SODIUM LEVEL 142 MEQ/L (136-145)
[2018-01-02 14:31] LABS: ALBUMIN 4.1 GM/DL (3.2-5.2); ALBUMIN/GLOBULIN RATIO 1.11 (1.00-1.93); ALKALINE PHOSPHATASE 130 U/L (45-117); ALT/SGPT 52 U/L (12-78); AST/SGOT 37 U/L (7-37); BILIRUBIN,TOTAL 0.4 MG/DL (0.2-1.0); TOTAL PROTEIN 7.8 GM/DL (6.4-8.2)
[2018-01-02 14:33] LABS: ANION GAP 9 MEQ/L (8-16)
== END ==
LOC: M SFHCPLAZ 09:43
DX: K74.3 Primary biliary cirrhosis (principal); E11.9 Type 2 diabetes mellitus without complications
CPT/HCPCS: 80053

== ENCOUNTER → 2018-03-26 | Outpatient (REF) | payer MEDICARE | LOC: M LAB REF 13:12 | PROVIDERS: ATTEND Internal Medicine Nephrology | DX: N39.0 Urinary tract infection, site not specified (principal) ==

== ENCOUNTER → 2018-05-01 | Outpatient (REF) | payer MEDICARE ==
[2018-05-01 10:38] LABS: HEMATOCRIT 41.8 % (36.0-47.0); HEMOGLOBIN 13.6 g/dl (12.0-15.5); MEAN CORPUSCULAR HEMOGLOBIN 29.7 pg (27.0-33.0); MEAN CORPUSCULAR HGB CONC 32.5 g/dl (32.0-36.5); MEAN CORPUSCULAR VOLUME 91.3 fl (80.0-96.0); PLATELET COUNT, AUTOMATED 251 10^3/uL (150-450); RED BLOOD COUNT 4.58 10^6/uL (4.00-5.40); WHITE BLOOD COUNT 6.5 10^3/uL (4.0-10.0)
[2018-05-01 10:58] LABS: HEMOGLOBIN A1c 6.5 %
[2018-05-01 11:12] LABS: ALBUMIN 3.8 GM/DL (3.2-5.2); BILIRUBIN,TOTAL 0.4 MG/DL (0.2-1.0); CALCIUM LEVEL 9.3 MG/DL (8.8-10.2); CHOLESTEROL RISK RATIO 4.75 (<5); CREATININE FOR GFR 1.35 MG/DL (0.55-1.30); GLOMERULAR FILTRATION RATE 39.9 (>32); POTASSIUM SERUM 4.8 MEQ/L (3.5-5.1); TOTAL PROTEIN 7.7 GM/DL (6.4-8.2)
== END ==
LOC: M SFHCPLAZ 08:46
PROVIDERS: ATTEND Internal Medicine
DX: E11.9 Type 2 diabetes mellitus without complications (principal); K74.3 Primary biliary cirrhosis; E78.00 Pure hypercholesterolemia, unspecified; I10 Essential (primary) hypertension

== ENCOUNTER → 2018-07-25 | Outpatient (REF) | payer MEDICARE | LOC: M LAB REF 17:08 | PROVIDERS: ATTEND Internal Medicine Nephrology | DX: N39.0 Urinary tract infection, site not specified (principal) ==

== ENCOUNTER → 2018-11-05 | Outpatient (REF) | payer MEDICARE ==
[2018-11-05 12:49] LABS: ALBUMIN 3.6 GM/DL (3.2-5.2); BILIRUBIN,TOTAL 0.5 MG/DL (0.2-1.0); CALCIUM LEVEL 9.3 MG/DL (8.8-10.2); CHOLESTEROL RISK RATIO 4.615 (<5); CREATININE FOR GFR 1.39 MG/DL (0.55-1.30); GLOMERULAR FILTRATION RATE 38.5 (>32); MAGNESIUM LEVEL 2.1 MG/DL (1.8-2.4); POTASSIUM SERUM 4.6 MEQ/L (3.5-5.1); TOTAL PROTEIN 7.6 GM/DL (6.4-8.2)
[2018-11-05 13:07] LABS: CREATININE, URINE 93.2 MG/DL; MAU/CREAT RATIO 116.9 MCG/MG (0.0-30.0)
== END ==
LOC: M SFHCPLAZ 09:29
PROVIDERS: ATTEND Internal Medicine
DX: E78.00 Pure hypercholesterolemia, unspecified (principal); K74.3 Primary biliary cirrhosis; I10 Essential (primary) hypertension; R73.01 Impaired fasting glucose; Z79.899 Other long term (current) drug therapy; Z79.82 Long term (current) use of aspirin

== ENCOUNTER → 2018-12-07 | Outpatient (REF) | payer MEDICARE | LOC: M LAB REF 17:18 | PROVIDERS: ATTEND Internal Medicine Nephrology | DX: N18.3 Chronic kidney disease, stage 3 (moderate) (principal); N39.0 Urinary tract infection, site not specified; I12.9 Hypertensive chronic kidney disease with stage 1 through stage 4 chronic kidney disease, or unspecified chronic kidney disease ==

== ENCOUNTER 2019-01-28 16:05 | Inpatient (IN) | payer MEDICARE ==
[~2019-01-28] VITALS: Ht 154.9 cm; Wt 83.1 kg
[2019-01-28 16:58] LABS: BASO % 0.4 % (0.0-1.0); EOS # 0.3 10^3/uL (0.0-0.5); EOS % 2.9 % (0.0-3.0); HEMATOCRIT 42.1 % (36.0-47.0); HEMOGLOBIN 13.3 g/dl (12.0-15.5); LYMPH # 2.1 10^3/uL (1.5-5.0); LYMPH % 18.5 % (24.0-44.0); MEAN CORPUSCULAR HEMOGLOBIN 29.6 pg (27.0-33.0); MEAN CORPUSCULAR HGB CONC 31.6 g/dl (32.0-36.5); MEAN CORPUSCULAR VOLUME 93.8 fl (80.0-96.0); MONO # 0.9 10^3/uL (0.0-0.8); NEUTROPHILS # 7.9 10^3/uL (1.5-8.5); NEUTROPHILS % 69.8 % (36.0-66.0); PLATELET COUNT, AUTOMATED 323 10^3/uL (150-450); RED BLOOD COUNT 4.49 10^6/uL (4.00-5.40); WHITE BLOOD COUNT 11.2 10^3/uL (4.0-10.0)
[2019-01-28] MEDS ORDERED: CENT1TAB PO (17:06)
[2019-01-28] MEDS ORDERED: URSO300C3 PO ×2 (17:06→18:15)
[2019-01-28] MEDS ORDERED: ASPI81TA85 PO (17:06)
[2019-01-28] MEDS ORDERED: LORA-622 PO (17:06)
[2019-01-28] MEDS ORDERED: OMEG12004 PO (17:06)
[2019-01-28] MEDS ORDERED: LOSA100T50 PO (17:06)
[2019-01-28] MEDS ORDERED: SIMV40TA20 PO (17:06)
[2019-01-28] MEDS ORDERED: CARA1TAB6 PO (17:06)
[2019-01-28] MEDS ORDERED: MAGN400C2 PO (17:06)
[2019-01-28] MEDS ORDERED: ZANT150T40 PO (17:06)
[2019-01-28] MEDS ORDERED: FLUT11IN INH (17:06)
[2019-01-28] MEDS ORDERED: ACET325C5 PO (17:06)
[2019-01-28] MEDS ORDERED: METO1TAB32 PO (17:06)
[2019-01-28] MEDS ORDERED: FLUO20CA19 PO (17:06)
[2019-01-28] MEDS ORDERED: BIOT10009 PO (17:06)
[2019-01-28 17:08] LABS: INR 1.12; PROTHROMBIN TIME 14.1 SECONDS (11.8-14.0)
[2019-01-28 17:09] LABS: PARTIAL THROMBOPLASTIN TIME 34.6 SECONDS (25.0-38.4)
[2019-01-28] MEDS ORDERED: HM C500T3 PO (17:09)
[2019-01-28] MEDS ORDERED: OCUVTAB4 PO (17:09)
[2019-01-28] MEDS ORDERED: NASA1SPR NARES (17:09)
[2019-01-28] MEDS ORDERED: OPCOSOL OU (17:09)
[2019-01-28] MEDS ORDERED: PATA0.2S OU (17:09)
[2019-01-28 17:31] LABS: CALCIUM LEVEL 10.2 MG/DL (8.8-10.2); CK-MB VALUE MASS 10.5 NG/ML (<3.6); CREATININE FOR GFR 1.62 MG/DL (0.55-1.30); FREE T4 0.68 NG/DL (0.76-1.46); GLOMERULAR FILTRATION RATE 32.2 (>32); MAGNESIUM LEVEL 2.2 MG/DL (1.8-2.4); MB/CK RELATIVE INDEX 2.16 (< OR =4); POTASSIUM SERUM 4.2 MEQ/L (3.5-5.1); THYROID STIMULATING HORMONE 3.25 uIU/ML (0.358-3.740); TROPONIN I 0.12 NG/ML (< 0.10)
--- NOTE | 2019-01-28 17:33 | REPVR ---
PROCEDURE INFORMATION: Exam: CT Head Without Contrast Exam date and time: 01/28/2019 4:21 PM Age: 83 years old Clinical history: Injury or trauma; Fall; Initial encounter; Blunt trauma (contusions or hematomas) TECHNIQUE: Imaging protocol: Computed tomography of the head without contrast. Radiation optimization: All CT scans at this facility use at least one of these dose optimization techniques: automated exposure control; mA and/or kV adjustment per patient size (includes targeted exams where dose is matched to clinical indication); or iterative reconstruction. COMPARISON: No relevant prior studies available. FINDINGS: Brain: Moderate diffuse cortical volume loss. Chronic small vessel ischemic changes in the bilateral periventricular white matter. Physiologic bilateral basal ganglia calcifications. No acute intracranial hemorrhage. No midline shift. Ventricles: There is a subtle slightly hyperdense lesion along the lateral wall of the body of the right lateral ventricle. This measures 6 mm x 5 mm x 7 mm. No hydrocephalus. Bones/joints: No acute fracture. Sinuses: Unremarkable as visualized. No acute sinusitis. Mastoid air cells: Visualized mastoid air cells are well aerated. Soft tissues: Unremarkable. IMPRESSION: 1. No acute intracranial abnormality is identified. 2. Subtle 7 mm lesion along the lateral wall of the right lateral ventricle. 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 If there are no prior studies available to establish stability, consider a followup head CT in 3-6 months. Electronically signed by: Mena Burnett On 01/28/2019 17:33:31 PM
--- NOTE | 2019-01-28 17:45 | REPVR ---
PROCEDURE INFORMATION: Exam: CT Cervical Spine Without Contrast Exam date and time: 01/28/2019 4:21 PM Age: 83 years old Clinical history: Injury or trauma; Fall; Initial encounter; Blunt trauma TECHNIQUE: Imaging protocol: Computed tomography images of the cervical spine without contrast. Radiation optimization: All CT scans at this facility use at least one of these dose optimization techniques: automated exposure control; mA and/or kV adjustment per patient size (includes targeted exams where dose is matched to clinical indication); or iterative reconstruction. COMPARISON: No relevant prior studies available. FINDINGS: Vertebrae: Slight reversal of the normal cervical lordosis. Degenerative change at the atlantodental articulation. Multilevel posterior facet joint arthropathy. Osseous fusion of the C2-C3 posterior facet joints. No acute fracture. Multilevel degenerative endplate changes, accentuated at C5-C6. Discs/Spinal canal/Neural foramina: Dorsal disc osteophyte complexes result in multilevel mild spinal canal stenosis, accentuated at C5-C6. Multilevel neural foraminal narrowing. Severe disc space narrowing at C5-C6. Moderate disc space narrowing at C4-C5 and C6-C7. Soft tissues: Unremarkable. Thyroid: Slightly hypodense 2.9 cm x 1.8 cm right thyroid lobe lesion. Lungs: Mild subpleural scarring in the lung apices. Vasculature: Atherosclerotic vascular calcifications. IMPRESSION: 1. No acute cervical spine fracture. 2. Multilevel cervical spondylosis. 3. Indeterminate right thyroid lobe lesion. Recommend followup with nonemergent thyroid ultrasound. COMMENT: In patients aged 35 years and older with an incidental thyroid nodule equal to or greater than 1.[address], MRI or extrathyroidal US, further evaluation with dedicated thyroid US is recommended for patients with normal life expectancy and without comorbidities. For smaller nodules without suspicious features, no further evaluation or follow up is recommended. Electronically signed by: Mena Burnett On 01/28/2019 17:45:36 PM
[2019-01-28] MEDS ORDERED: MOME0.1S AU (18:15)
[2019-01-28] MEDS ORDERED: GLUC750T13 PO (18:15)
[2019-01-28] MEDS ORDERED: DULO1CAP5 PO (18:15)
[2019-01-28] MEDS ORDERED: AMLO2.5T3 PO (18:15)
[2019-01-28] MEDS ORDERED: ONDA4TAB6 PO (18:15)
[2019-01-28] MEDS ORDERED: MAGN400T2 PO (18:15)
[2019-01-28] MEDS ORDERED: ALL10TAB29 PO (18:15)
[2019-01-28] MEDS ORDERED: VITA100066 PO (18:15)
[2019-01-28] MEDS ORDERED: BIOT1000 PO (18:15)
--- NOTE | 2019-01-28 18:49 | REP ---
REASON: Trauma. COMPARISON: None. FINDINGS: No acute fracture or destructive osseous lesion. Degenerative changes are seen involving the hip and knee. Electronically Signed by Luis Fernando Pryor DO 01/28/2019 07:52 P
--- NOTE | 2019-01-28 18:51 | REP ---
REASON FOR EXAM: Trauma. FINDINGS: No acute fracture or destructive osseous lesion. Retro and plantar calcaneal heel spurs are present. Electronically Signed by Luis Fernando Pryor DO 01/28/2019 07:53 P
--- NOTE | 2019-01-28 19:00 | REP ---
REASON FOR EXAM: Syncopal episode. COMPARISON: 12/10/2013. AP and lateral views were obtained. The technique utilized in obtaining the radiograph has magnified the cardiac silhouette and accentuated the interstitial markings. The cardiac silhouette is magnified by technique. Mild cardiomegaly can not be ruled out. The lung ramos are clear and unchanged. The osseous structures are stable and intact. IMPRESSION: No evidence of acute cardiopulmonary disease. Findings and technique as described above. Electronically Signed by Luis Fernando Pryor DO 01/28/2019 07:53 P
--- NOTE | 2019-01-28 19:10 | HPEPDOC ---
[facility] Medical History & Physical Date of Admission Jan 28, 2019 Date of Service: Jan 28, 2019 Primary Care Physician: Wolf Bolton Attending Physician: IQRA ZELAYA MD History and Physical TIME OF SERVICE: 8:30 PM CHIEF COMPLAINT: Loss of consciousness HISTORY OF PRESENT ILLNESS: This is an 83-year-old female who presented to the hospital after having 2 episodes where she lost consciousness today. The first occurred this morning; she remembers suddenly falling down to the ground. She is not sure why she fell, but she did feel a little bit dizzy; she may have lost consciousness during this episode. As a result of the fall, she hurt her left knee. The second episode occ urred this afternoon and was witnessed by her sons who report that she loss consciousness for 5 minutes; they didn't notice any seizure-like activity, but she did have bowel and bladder incontinence. The patient reports having a history of frequent falls due to unsteady gait because of hip osteoarthritis. She doesn't use any walking aids. REVIEW OF SYSTEMS: 12 point review of systems negative except as listed in HPI PAST MEDICAL/ SURGICAL HISTORY: Chronic hypertension. CKD 3 GERD Dyslipidemia Primary biliary cirrhosis Arrhythmias subtype unspecified Osteopenia Anxiety Obesity Aortic valve sclerosis Right upper abdominal incisional hernia Status post appendectomy Status post cholecystectomy Status post hysterectomy Status post hernia repair SOCIAL HISTORY: She quit smoking in her 20s FAMILY HISTORY: CAD COPD Chronic hypertension ALLERGIES: Please see below. HOME MEDICATIONS: Please see below. PHYSICAL EXAMINATION: VITAL SIGNS: Please see below. GEN: well nourished / well developed/ NAD INTEGUMENT: not flushed/ not jaundice / left knee is in a splint, the skin surrounding the kneecap is blue purple in color HEENT: normocephalic / atraumatic / lips acyanotic /mucus membranes moist and pink / sclera anicteric CVS: RRR/ NMRG / unable to appreciate carotid bruits /radial pulses intact, dorsalis pedis pulses diminished LUNGS: able to speak full sentences without stopping to take a breath / no coughing / lungs are clear to auscultation bilaterally on room air ABDOMEN: she has a right upper abdominal incisional hernia/ bowel sounds are present / the abdomen is tympanic on percussion, soft & not tender with palpation MSK/EXTREMITIES: range of motion intact in all 4 extremities NEURO: CN 2-12 are grossly intact / speech is not dysarthric / strength is 5 out of 5 in all extremities except for the left knee were assessment is limited because of her knees in a splint PSYCH: alert and oriented to person place and time/ able to understand and follow all commands LABORATORY DATA: See below. IMAGING: CT of the head " IMPRESSION: 1. No acute intracranial abnormality is identified. 2. Subtle 7 mm lesion along the lateral wall of the right lateral ventricle. 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 If there are no prior studies available to establish stability, consider a followup head CT in 3-6 months. " CT of the cervical spine " IMPRESSION: 1. No acute cervical spine fracture. 2. Multilevel cervical spondylosis. 3. Indeterminate right thyroid lobe lesion. Recommend followup with nonemergent thyroid ultrasound. Left lower leg tib-fib x-ray " FINDINGS: No acute fracture or destructive osseous lesion. Retro and plantar calcaneal heel spurs are present." X-ray of the left knee " IMPRESSION:Chronic changes as described above. A suprapatellar bursal effusion can not be ruled out." X-ray of the femur " FINDINGS: No acute fracture or destructive osseous lesion. Degenerative changes are seen involving the hip and knee." Chest x-ray " IMPRESSION: No evidence of acute cardiopulmonary disease. Findings and technique as described above." MICROBIOLOGY: Please see below. ASSESSMENT: Ms. Pruitt is an 83-year-old with a history of chronic hypertension, CKD 3, GERD, dyslipidemia, primary greatly cirrhosis, osteopenia, and unspecified types of arrhythmias will be admitted for evaluation of syncope. PLAN: 1. Syncope Cause to be determined The troponin is slightly elevated Echo from 2009 showed moderate aortic valve sclerosis CT of the head and neurological exam were unremarkable BUN is elevated, therefore she may be slightly dehydrated. Plan: Admit to PCU/Telemetry /IV fluids/precautions/ f/u orthostats, work up to r/o ACS and echocardiogram to rule out worsening aortic valvulopathy / will not order MRI of the head because her exam was nonfocal / will cancel UA bc she doesn't have abdominal pain / hold cetirizine because it can cause somnolence / if the workup is negative, the daytime team may consider referring her a cylinder inspector for repeat Holter monitor or Event monitor 2. Elevated troponin She does not have chest pain Possibly due to CKD 3 versus ACS EKG as above. Plan: Telemetry/follow-up serial troponin, BNP, serial EKGs, lipid panel, A1c and echocardiogram/continue with aspirin and simvastatin/nitroglycerin when n ecessary for chest pain 3. Benign meningioma. Plan: No need for additional testing 4. Right thyroid lobe lesion TSH. Plan: Follow-up thyroid ultrasound 5. Left knee trauma Plan: Continue left knee splint/Tylenol for pain / PT eval to see if she needs a walking aide 6. Chronic hypertension Plan: Continue amlodipine, losartan and metoprolol 7. CKD 3 At baseline Plan: Follow-up BMP 8. Primary biliary cirrhosis Plan: Continue with ursodiol 9. Obesity BMI 33.1 This complicates care Plan: Follow-up A1c to rule out coexisting diabetes / she can f/u w her PCP for STOP BANG questionnaire & tubing mill operator consult DVT PROPHYLAXIS: Lovenox DISPOSITION: Likely home after more than 2 midnight stay Vital Signs Vital Signs Date Time Temp Pulse Resp B/P (MAP) Pulse Ox O2 Delivery O2 Flow Rate FiO2 01/28/19 18:51 97.4 01/28/19 18:49 71 20 97 Room Air 01/28/19 17:30 134/85 (101) Laboratory Data Labs 24H Laboratory Tests 2 01/28/19 16:36: Bedside Glucose (Misc Panel) 140H 01/28/19 16:45: Immature Granulocyte % (Auto) 0.4, Neutrophils (%) (Auto) 69.8H, Lymphocytes (%) (Auto) 18.5L, Monocytes (%) (Auto) 8.0H, Eosinophils (%) (Auto) 2.9, Basophils (%) (Auto) 0.4, Neutrophils # (Auto) 7.9, Lymphocytes # (Auto) 2.1, Monocytes # (Auto) 0.9H, Eosinophils # (Auto) 0.3, Basophils # (Auto) 0.0, Nucleated Red Blood Cells % (auto) 0.0, Prothrombin Time 14.1H, Prothromb Time International Ratio 1.12, Activated Partial Thromboplast Time 34.6, Anion Gap 10, Glomerular Filtration Rate 32.2, Calcium Level 10.2, Magnesium Level 2.2, Total Creatine Kinase 485H, Creatine Kinase MB 10.5H, Creatine Kinase MB Relative Index 2.16, Troponin I 0.12H, Thyroid Stimulating Hormone (TSH) 3.250, Free Thyroxine 0.68L CBC/BMP Laboratory Tests 01/28/19 16:45 Home Medications Scheduled Acetaminophen (Tylenol) 325 Mg Capsule, 2 TBS PO QHS Amlodipine Besylate (Amlodipine Besylate) 2.5 Mg Tablet, 2.5 MG PO DAILY Aspirin (Aspir 81) 81 Mg Tablet.dr, 81 MG PO DAILY Biotin (Biotin) 1 Mg Tablet, 1,000 MCG PO 2XW Cetirizine HCl (Cetirizine HCl) 10 Mg Tablet, 10 MG PO QHS Cholecalciferol (Vitamin D3) (Vitamin D3) 1,000 Unit Tablet, 1,000 UNIT PO 3XW MON/WED/FRI Cranberry Fruit Extract (Cranberry) 500 Mg Tablet, 500 MG PO DAILY Duloxetine Hcl (Duloxetine HCl) 30 Mg Capsule.dr, 30 MG PO DAILY Fluticasone Propionate (Flovent Hfa) 110 Mcg/Act Aer.w.adap, 2 PUFFS INH BID Glucosa Fonseca 2Kcl/Chondroitin Fonseca (Glucosamine-Chondroitin Tablet) 1 Each Tablet, 1 TAB PO BID Losartan Potassium (Losartan Potassium) 100 Mg Tablet, 100 MG PO QHS Magnesium Oxide (Magnesium Oxide) 400 Mg Tablet, 400 MG PO BID Metoprolol Succinate (Metoprolol Succinate) 25 Mg Tab.er.24h, 12.5 MG PO QHS Multivit-Min/FA/Lycopen/Lutein (Centrum Silver Tablet) 1 Each Tablet, 1 TAB PO DAILY Naphazoline HCl/Pheniramine (Opcon-A Eye Drops) 15 Ml Drops, 1 DROP OU DAILY Olopatadine HCl (Pataday) 0.2% 2.5ML Drops, 1 DROP OU QHS [place]-3/Dha/Epa/Fish Oil ([place]-3 Fish Oil 1,200 mg Sfgl) 1,200 Mg Capsule, 1 CAP PO BID Simvastatin (Simvastatin) 40 Mg Tablet, 40 MG PO QHS Triamcinolone Acetonide (Nasacort) 10.8 Ml [place], 2 SPRAY NARES DAILY Ursodiol (Ursodiol) 300 Mg Capsule, 300 MG PO QAM Ursodiol (Ursodiol) 300 Mg Capsule, 600 MG PO QHS Vit A/Vit C/Vit E/Zinc/Copper (Preservision Areds Tablet) 1 Each Tablet, 1 TAB PO BID Scheduled PRN Mometasone Furoate (Mometasone Furoate) 30 Ml Solution, 1 APLCT AU BID PRN for ITCHING Ondansetron (Ondansetron Odt) 4 Mg Tab.rapdis, 4 MG PO Q6H PRN for NAUSEA OR VOMITING Sucralfate (Carafate) 1 Gm Tablet, 1 GM PO BID PRN for DISCOMFORT Allergies Coded Allergies: ciprofloxacin (Verified Allergy, Mild, RASH, 01/28/19) Contrast Media (Verified Allergy, Unknown, X-RAY DYE, 07/09/09) rofecoxib (Verified Allergy, Unknown, 01/28/19) albuterol (Verified Adverse Reaction, Intermediate, DIFFICULTY BREATHING, 01/28/19) atorvastatin (Verified Adverse Reaction, Intermediate, HEART PALPITATIONS, 01/28/19) ipratropium (Verified Adverse Reaction, Intermediate, DIFFICULTY BREATHING, 01/28/19) gabapentin (Verified Adverse Reaction, Mild, DROWSINESS, 01/28/19) niacin (Verified Adverse Reaction, Mild, FLUSHING, 01/28/19) A-FIB/CHADSVASC A-FIB History Current/History of A-Fib/PAF?: No Current PO Anticoag Therapy: IQRA Villagomez MD Jan 28, 2019 19:10
--- NOTE | 2019-01-28 19:24 | REP ---
REASON: Trauma. There is tricompartmental marginal osteophytosis and mild medial compartmental narrowing. There is evidence of soft-tissue swelling superficial to the patella. IMPRESSION:Chronic changes as described above. A suprapatellar bursal effusion can not be ruled out. Electronically Signed by Luis Fernando Pryor DO 01/28/2019 07:53 P
[2019-01-28 19:25] VITALS: BP 139/85
[2019-01-28] MEDS ORDERED: MOM 30ML SUSPENSION UDC PO PRN (19:30)
[2019-01-28] MEDS ORDERED: NITROGLYCERIN 0.4 MG SUBL TABLET SL PRN (19:30)
[2019-01-28] MEDS: NS 500 ML IV SCH (19:30)
[2019-01-28] MEDS ORDERED: MAALOX 30 ML SUSP *UDC PO PRN (19:30)
[2019-01-28] MEDS: FLUTICASONE HFA 110 MCG 12 GM INHALER (FLOVENT) INH SCH (20:00)
[2019-01-28] MEDS ORDERED: ONDANSETRON 4 MG ORAL DISINTEGRATING TAB (Q0162 PER 1MG) PO PRN (21:30)
[2019-01-28] MEDS ORDERED: SUCRALFATE 1 GM TAB PO PRN (21:30)
[2019-01-28 22:31] LABS: HEMOGLOBIN A1c 6.7 %
[2019-01-28 23:59] VITALS: BP 137/73
[2019-01-29] VITALS (8 sets, daily range): BP systolic 117–150; BP diastolic 71–82
[2019-01-29] MEDS: METOPROLOL SUCC *XL* 25MG TAB (TopROL *XL*) PO SCH ×2 (02:24→21:15)
[2019-01-29] MEDS: MAGNESIUM OXIDE 400 MG TAB (MAG-OX) PO SCH ×3 (02:25→21:14)
[2019-01-29] MEDS: LOSARTAN 50 MG TAB PO SCH ×2 (02:25→21:16)
[2019-01-29] MEDS: URSODIOL 300 MG CAP PO SCH ×3 (02:26→21:17)
[2019-01-29] MEDS: OCUVITE 1 TAB PO SCH ×3 (02:26→21:17)
[2019-01-29] MEDS: DOCUSATE SODIUM 100 MG CAP PO SCH ×3 (02:26→21:13)
[2019-01-29] MEDS: SIMVASTATIN 40 MG TAB PO SCH ×2 (02:26→21:15)
[2019-01-29 04:49] LABS: HEMATOCRIT 35.9 % (36.0-47.0); HEMOGLOBIN 11.7 g/dl (12.0-15.5); MEAN CORPUSCULAR HEMOGLOBIN 30.2 pg (27.0-33.0); MEAN CORPUSCULAR HGB CONC 32.6 g/dl (32.0-36.5); MEAN CORPUSCULAR VOLUME 92.5 fl (80.0-96.0); PLATELET COUNT, AUTOMATED 268 10^3/uL (150-450); RED BLOOD COUNT 3.88 10^6/uL (4.00-5.40); WHITE BLOOD COUNT 9.2 10^3/uL (4.0-10.0)
[2019-01-29] MEDS: ACETAMINOPHEN TAB 650MG DOSE (2X325MG) PO PRN ×3 (05:00→16:12)
[2019-01-29] MEDS: NS 500 ML IV SCH (05:02)
[2019-01-29 05:13] LABS: ALBUMIN 3.3 GM/DL (3.2-5.2); BILIRUBIN,TOTAL 0.4 MG/DL (0.2-1.0); CREATININE FOR GFR 1.4 MG/DL (0.55-1.30); GLOMERULAR FILTRATION RATE 38.1 (>32); MAGNESIUM LEVEL 2.1 MG/DL (1.8-2.4); POTASSIUM SERUM 4.7 MEQ/L (3.5-5.1); TOTAL PROTEIN 6.9 GM/DL (6.4-8.2)
[2019-01-29 05:15] LABS: TROPONIN I 0.04 NG/ML (< 0.10)
[2019-01-29] MEDS: FLUTICASONE HFA 110 MCG 12 GM INHALER (FLOVENT) INH SCH ×2 (08:24→20:48)
[2019-01-29] MEDS: ASPIRIN 81 MG ENTERIC TAB PO SCH (08:59)
[2019-01-29] MEDS: DULoxetine 30 MG CAP (CYMBALTA) PO SCH (08:59)
[2019-01-29] MEDS: ENOXAPARIN 30 MG/0.3 ML SYR (J1650) SC SCH (09:00)
--- NOTE | 2019-01-29 11:15 | ECGEPIP ---
[facility] Test Date: 2019-01-28 Pat Name: SADIA KOHLER Department: Room: [place] [address] Gender: Female Owner: JACINTO : 1935 Requested By: IQRA ZELAYA Order Number: [id number] Reading MD: Selvin Guerra Measurements Intervals [place] Rate: 79 P: 81 DC: 167 QRS: -19 QRSD: 94 T: 24 QT: 371 QTc: 427 Interpretive Statements SINUS RHYTHM Left ventricular hypertrophy by aVL criteria Electronically Signed on 01-29-2019 11:14:52 EST by Selvin Guerra
--- NOTE | 2019-01-29 11:16 | ECGEPIP ---
[facility] Test Date: 2019-01-29 Pat Name: SADIA KOHLER Department: Room: [place] [address] Gender: Female Butcher Helper: JACINTO : 1935 Requested By: IQRA ZELAYA Order Number: [id number] Reading MD: Selvin Guerra Measurements Intervals [place] Rate: 69 P: 63 [place]: 180 QRS: -13 QRSD: 93 T: 9 QT: 393 QTc: 423 Interpretive Statements SINUS RHYTHM VOLTAGE CRITERIA FOR LVH Subtle inferior T wave changes from tracing done 01-28-19 Electronically Signed on 01-29-2019 11:15:57 EST by Selvin Guerra
--- NOTE | 2019-01-29 11:23 | ECGEPIP ---
[facility] Test Date: 2019-01-29 Pat Name: SADIA KOHLER Department: Room: [place] [address] Gender: Female Hospice Registered Nurse: ASHLEY : 1935 Requested By: IQRA ZELAYA Order Number: [id number] Reading MD: Selvin Guerra Measurements Intervals [place] Rate: 73 P: 79 [place]: 193 QRS: -19 QRSD: 89 T: 42 QT: 380 QTc: 421 Interpretive Statements SINUS RHYTHM Left ventricular hypertrophy by aVL criteria Similar to tracing done 01-28-19 Electronically Signed on 01-29-2019 11:23:38 EST by Selvin Guerra
--- NOTE | 2019-01-29 13:02 | REP ---
Thyroid sonography: History: Thyroid lobe lesion on CT study. Comparison CT study January 28, 2019. Thyroid sonography findings: Thyroid isthmus is 0.8 cm in thickness. Right lobe dimensions are 4.8 x 1.9 x 1.9 cm. Left lobe measures 3.8 x 1.1 x 1.2 cm. There is a hypoechoic heterogeneous predominately solid nodule in the right lobe measuring 3.3 x 1.9 x 3.3 cm. There are no discernible microcalcifications or other calcifications. Its margin is smooth and its long axis is parallel to the skin. There is a 0.8 cm nodule in the lower pole of the left lobe. There is a 0.3 cm cyst in the left lobe. Impression: Findings consistent with multinodular thyroid. There is a 3.3 cm nodule in the lower pole of the right lobe which is predominately solid but has no additional suspicious sonographic features. Electronically Signed by Nicholas Altamirano MD 01/29/2019 03:32 P
--- NOTE | 2019-01-29 15:03 | IPNPDOC ---
Text Note Date of Service The patient was seen on 01/29/19. NOTE Subjective: Patient is an 83-year-old female with PMHx of Unspecified arrhythmias, AV sclerosis, HTN, DLP, CKD3, Primary biliary cirrhosis, Osteopenia, Anxiety, Obesity, GERD who presented to the emergency room after she collapsed while at home. Patient reported that initially she had had a mechanical fall and landed on her left knee. Subsequently, she had another and was talking with her son-in-law when she experienced sudden lightheadedness, dizziness, and had passed out. EMS was contacted and patient was brought to the emergency room. Initial evaluation had revealed some level of dehydration. Patient was admitted to the hospitalist service for further evaluation and treatment. Patient was seen and examined at the bedside. Currently patient denies any headache, nausea, vomiting, chest pain, shortness of breath, palpitations, constipation, diarrhea, or urinary discomfort. Objective: Vitals (See below) General: Lying in bed, no acute distress, comfortable, AAOx3 HEENT: NC, AT CVS: +S1S2 Lungs: Fair air entry b/l, -w/r/r Abdomen: Soft, ND, NT Extremities: - Edema, - Calf tenderness Imaging: - CT head 01/28: 1. No acute intracranial abnormality is identified. 2. Subtle 7 mm lesion along the lateral wall of the right lateral ventricle. 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 If there are no prior studies available to establish stability, consider a followup head CT in 3-6 months. - CT Cervical spine 01/28: 1. No acute cervical spine fracture. 2. Multilevel cervical spondylosis. 3. Indeterminate right thyroid lobe lesion. Recommend followup with nonemergent thyroid ultrasound. - XR L tib / fib 01/28: No acute fracture or destructive osseous lesion. Retro and plantar calcaneal heel spurs are present. - XR L knee 01/28: Chronic changes as described above. A suprapatellar bursal effusion can not be ruled out. - XR Femur 01/28: No acute fracture or destructive osseous lesion. Degenerative changes are seen involving the hip and knee. - CXR 01/28: No evidence of acute cardiopulmonary disease. Findings and technique as described above. Assessment and plan: Syncope - possibly 2/2 vasovagal, possibly 2/2 orthostatic hypotension - Patient remains asymptomatic and has not had any events since admission - Imaging negative - BUN / Cr mildly elevated - suspect some level of dehydration - c/w telemetry monitoring - ECHO pending - c/w Physical therapy - May require outpatient cardiology follow up Elevated troponin - possibly as a result of CKD3 - Patient does not express any chest pain, short of breath or palpitations - EKG noted - c/w Telemetry monitoring Benign meningioma - No need for additional testing Right thyroid lobe lesion - TSH levels normal, Free T4 low - Thyroid US: Findings consistent with multinodular thyroid. There is a 3.3 cm nodule in the lower pole of the right lobe which is predominately solid but has no additional suspicious sonographic features. - Will have outpatient follow up with Endocrinology Left knee trauma - Imaging negative for fracture - c/w left knee splint and Tylenol PRN - c/w Physical therapy HTN - BP remains well controlled - c/w amlodipine, losartan and metoprolol with holding parameters CKD3 - Cr appears to be at baseline; range of 1.4 - 1.6 - Cr appears to have improved from admission Primary biliary cirrhosis - c/w Ursodiol Obesity - BMI 33.1 - complicating medical care - Follow up with PCP for dietary consult GI prophylaxis - c/w DVT prophylaxis - c/w Lovenox Disposition: - Anticipate discharge tomorrow morning VS,Fishbone, I+O VS, Fishbone, I+O Laboratory Tests 01/28/19 16:45 01/29/19 04:36 Vital Signs Date Time Temp Pulse Resp B/P (MAP) Pulse Ox O2 Delivery O2 Flow Rate FiO2 01/29/19 12:00 98.0 77 16 129/76 (93) 97 Room Air I&O- Last 24 Hours up to 6 AM 01/29/19 06:00 Intake Total 0 ml Output Total 400 ml Balance -400 ml NELLY SEGOVIA MD Jan 29, 2019 15:03
--- NOTE | 2019-01-29 21:41 | ECHO ---
DATE OF PROCEDURE: 01/28/2019 Date of : 1935 Age: 83 Gender: Female Height: 61 inches Weight: 180 pounds Body surface area: 1.81 meters squared Inpatient: Progressive care unit, room 3223 REFERRING PHYSICIAN: Dr. Ebony Lara INDICATION: Syncope. MEASUREMENTS: 2D Measurements: RV: 3.0 cm LV: 3.6 cm Septum: 1.2 cm Posterior wall: 1.2 cm Aortic root: 3.2 cm LA: 3.4 cm LVEF: 75% Doppler Measurements: AV: 2.28 meters per second LVOT: 0.87 meters per second LVOT diameter: 2.3 cm Mean AV gradient: 12 mmHg Dimensionless index: 0.39 MV-E: 69, A: 87, EA ratio: 0.8 Early mitral deceleration time: 246 milliseconds E prime medial:6, A prime medial: 7.3, E prime lateral: 7.5. Average E/E prime ratio: 10.2/pulmonary capillary wedge pressure: 14.6 mmHg. PV: 0.75 meters per second Pulmonary artery acceleration time: 114 milliseconds RVSP: 32 mmHg IVC: 1.6 cm COMMENTS: Normal sinus rhythm without intraventricular conduction disturbance. M-mode and two-dimensional echocardiography was performed with pulsed, continuous wave, color flow and tissue Doppler studies. Borderline concentric left ventricular hypertrophy with hyperkinetic wall motion. Left atrial size upper limits of normal with grade 1 left ventricular (LV) diastolic dysfunction and borderline increased estimated mean left atrial pressure. Normal right heart chamber sizes and motion with Doppler evidence of borderline pulmonary hypertension. Normal inferior vena cava (IVC) size and collapse against an elevated central venous pressure. Mild calcific aortic stenosis. The noncoronary cusp of the aortic valve appeared to be less mobile than the other two. Moderate mitral annular calcification with normal leaflet thickness and excursion with no posterior systolic buckling and only trace insufficiency. Normal appearing tricuspid valve with mild insufficiency. No apparent intracardiac mass or pericardial effusion.
--- NOTE | 2019-01-29 22:02 | ECGEPIP ---
[facility] - ED Test Date: 2019-01-28 Pat Name: SADIA KOHLER Department: Room: - Gender: Female Laboratory Scientist: ubaldo : 1935 Requested By: LAKESHA De La Rosa Order Number: [id number] Reading MD: Marianne Mace Measurements Intervals [place] Rate: 75 P: 65 [place]: 168 QRS: -15 QRSD: 84 T: 47 QT: 376 QTc: 423 Interpretive Statements SINUS RHYTHM NSTTW abnormalities NO PRIOR Electronically Signed on 01-29-2019 22:02:13 EST by Marianne Mace
[2019-01-30] VITALS: BP 122/70
[2019-01-30 00:16] LABS: CHOLESTEROL RISK RATIO 4.282 (<5)
[2019-01-30 04:00] VITALS: BP 147/82
[2019-01-30] MEDS: FLUTICASONE HFA 110 MCG 12 GM INHALER (FLOVENT) INH SCH (07:43)
[2019-01-30 08:00] VITALS: BP 148/80
[2019-01-30] MEDS: DOCUSATE SODIUM 100 MG CAP PO SCH (09:00)
[2019-01-30] MEDS: ACETAMINOPHEN TAB 650MG DOSE (2X325MG) PO PRN (09:03)
[2019-01-30] MEDS: DULoxetine 30 MG CAP (CYMBALTA) PO SCH (09:03)
[2019-01-30] MEDS: ASPIRIN 81 MG ENTERIC TAB PO SCH (09:03)
[2019-01-30] MEDS: MAGNESIUM OXIDE 400 MG TAB (MAG-OX) PO SCH (09:04)
[2019-01-30] MEDS: URSODIOL 300 MG CAP PO SCH (09:05)
[2019-01-30] MEDS: ENOXAPARIN 30 MG/0.3 ML SYR (J1650) SC SCH (09:06)
--- NOTE | 2019-01-30 12:46 | DS.PDOC ---
Discharge Summary General Date of Admission Jan 28, 2019 at 19:10 Date of Discharge 01/30/2019 Discharge Summary PROCEDURES PERFORMED DURING STAY: [None]. ADMITTING DIAGNOSES / DISCHARGE DIAGNOSES: Syncope - possibly 2/2 vasovagal, possibly 2/2 orthostatic hypotension Elevated troponin - possibly as a result of CKD3 Benign meningioma Right thyroid lobe lesion Left knee trauma HTN CKD3 Primary biliary cirrhosis Obesity DVT prophylaxis COMPLICATIONS/CHIEF COMPLAINT: Collapse HISTORY OF PRESENT ILLNESS: Patient is an 83-year-old female with PMHx of Unspecified arrhythmias, AV sclerosis, HTN, DLP, CKD3, Primary biliary cirrhosis, Osteopenia, Anxiety, Obesity, GERD who presented to the emergency room after she collapsed while at home. Patient reported that initially she had had a mechanical fall and landed on her left knee. Subsequently, she had another and was talking with her son-in-law when she experienced sudden lightheadedness, dizziness, and had passed out. EMS was contacted and patient was brought to the emergency room. Initial evaluation had revealed some level of dehydration. Patient was admitted to the hospitalist service for further evaluation and treatment. HOSPITAL COURSE: Syncope - possibly 2/2 vasovagal, possibly 2/2 orthostatic hypotension - Patient remains asymptomatic and has not had any events since admission - Imaging negative - BUN / Cr mildly elevated - suspect some level of dehydration - c/w telemetry monitoring - ECHO G1DD, Borderline pulmonary HTN, Mild calcific aortic stenosis, moderate mitral annnular calcification - c/w Physical therapy; has been cleared for discharge - Will have outpatient follow-up with primary Provider and cardiology within next 7 days. Elevated troponin - possibly as a result of CKD3 - Patient does not express any chest pain, short of breath or palpitations - EKG noted - c/w Telemetry monitoring Benign meningioma - No need for additional testing Right thyroid lobe lesion - TSH levels normal, Free T4 low - Thyroid US: Findings consistent with multinodular thyroid. There is a 3.3 cm nodule in the lower pole of the right lobe which is predominately solid but has no additional suspicious sonographic features. - Imaging findings were relayed to the patient; patient has expressed understanding of test results and need for follow-up - Will have outpatient follow up with Endocrinology after seeing her primary care provider Left knee trauma - Imaging negative for fracture - c/w left knee splint and Tylenol PRN - c/w Physical therapy - Patient follows with an orthopedic surgeon as an outpatient for her right knee; she will receive outpatient follow-up upon discharge HTN - BP remains well controlled - c/w amlodipine, losartan and metoprolol with holding parameters CKD3 - Cr appears to be at baseline; range of 1.4 - 1.6 - Cr appears to have improved from admission Primary biliary cirrhosis - c/w Ursodiol Obesity - BMI 33.1 - complicating medical care - Follow up with PCP for dietary consult DVT prophylaxis - c/w Lovenox DISCHARGE MEDICATIONS: Please see below. ALLERGIES: Please see below. PHYSICAL EXAMINATION ON DISCHARGE: Vitals (See below) General: Lying in bed, no acute distress, comfortable, AAOx3 HEENT: NC, AT CVS: +S1S2 Lungs: Fair air entry b/l, no appreciable wheezing, rhonchi, rales Abdomen: Soft, remains nondistended and nontender Extremities: No evidence of edema, - Calf tenderness LABORATORY DATA: Please see below. Imaging: - CT head 01/28: 1. No acute intracranial abnormality is identified. 2. Subtle 7 mm lesion along the lateral wall of the right lateral ventricle. 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 If there are no prior studies available to establish stability, consider a followup head CT in 3-6 months. - CT Cervical spine 01/28: 1. No acute cervical spine fracture. 2. Multilevel cervical spondylosis. 3. Indeterminate right thyroid lobe lesion. Recommend followup with nonemergent thyroid ultrasound. - XR L tib / fib 01/28: No acute fracture or destructive osseous lesion. Retro and plantar calcaneal heel spurs are present. - XR L knee 01/28: Chronic changes as described above. A suprapatellar bursal effusion can not be ruled out. - XR Femur 01/28: No acute fracture or destructive osseous lesion. Degenerative changes are seen involving the hip and knee. - CXR 01/28: No evidence of acute cardiopulmonary disease. Findings and technique as described above. ACTIVITY: [As tolerated]. DISCHARGE PLAN: Follow up with Dr. Benito Ivey and Orthopedic surgery within 7 days Remain compliant with treatment plan and medications Return to the ER if you experience any problems DISPOSITION: Home, Self-Care. DISCHARGE CONDITION: [Stable]. TIME SPENT ON DISCHARGE: 37 minutes Vital Signs/I&Os Vital Signs Date Time Temp Pulse Resp B/P (MAP) Pulse Ox O2 Delivery O2 Flow Rate FiO2 01/30/19 08:00 97.3 60 18 148/80 (102) 96 Room Air I&O- Last 24 Hours up to 6 AM 01/30/19 06:00 Intake Total 1015 ml Output Total 1020 ml Balance -5 ml Laboratory Data Labs 24H Laboratory Tests 2 01/29/19 20:13: Bedside Glucose (Misc Panel) 137H FSBS Laboratory Tests Test 01/29/19 20:13 Range/Units Bedside Glucose (Misc Panel) 137 83-110 MG/DL Discharge Medications Scheduled Acetaminophen (Tylenol) 325 Mg Capsule, 2 TBS PO QHS, (Reported) Amlodipine Besylate (Amlodipine Besylate) 2.5 Mg Tablet, 2.5 MG PO DAILY, (Reported) Aspirin (Aspir 81) 81 Mg Tablet.dr, 81 MG PO DAILY, (Reported) Biotin (Biotin) 1 Mg Tablet, 1,000 MCG PO 2XW, (Reported) Cetirizine HCl (Cetirizine HCl) 10 Mg Tablet, 10 MG PO QHS, (Reported) Cholecalciferol (Vitamin D3) (Vitamin D3) 1,000 Unit Tablet, 1,000 UNIT PO 3XW, (Reported) MON/WED/FRI Cranberry Fruit Extract (Cranberry) 500 Mg Tablet, 500 MG PO DAILY, (Reported) Duloxetine Hcl (Duloxetine HCl) 30 Mg Capsule.dr, 30 MG PO DAILY, (Reported) Fluticasone Propionate (Flovent Hfa) 110 Mcg/Act Aer.w.adap, 2 PUFFS INH BID, (Reported) Glucosa Fonseca 2Kcl/Chondroitin Fonseca (Glucosamine-Chondroitin Tablet) 1 Each Tablet, 1 TAB PO BID, (Reported) Losartan Potassium (Losartan Potassium) 100 Mg Tablet, 100 MG PO QHS, (Reported) Magnesium Oxide (Magnesium Oxide) 400 Mg Tablet, 400 MG PO BID, (Reported) Metoprolol Succinate (Metoprolol Succinate) 25 Mg Tab.er.24h, 12.5 MG PO QHS, (Reported) Multivit-Min/FA/Lycopen/Lutein (Centrum Silver Tablet) 1 Each Tablet, 1 TAB PO DAILY, (Reported) Naphazoline HCl/Pheniramine (Opcon-A Eye Drops) 15 Ml Drops, 1 DROP OU DAILY, (Reported) Olopatadine HCl (Pataday) 0.2% 2.5ML Drops, 1 DROP OU QHS, (Reported) [place]-3/Dha/Epa/Fish Oil ([place]-3 Fish Oil 1,200 mg Sfgl) 1,200 Mg Capsule, 1 CAP PO BID, (Reported) Simvastatin (Simvastatin) 40 Mg Tablet, 40 MG PO QHS, (Reported) Triamcinolone Acetonide (Nasacort) 10.8 Ml [place], 2 SPRAY NARES DAILY, (Reported) Ursodiol (Ursodiol) 300 Mg Capsule, 300 MG PO QAM, (Reported) Ursodiol (Ursodiol) 300 Mg Capsule, 600 MG PO QHS, (Reported) Vit A/Vit C/Vit E/Zinc/Copper (Preservision Areds Tablet) 1 Each Tablet, 1 TAB PO BID, (Reported) Scheduled PRN Mometasone Furoate (Mometasone Furoate) 30 Ml Solution, 1 APLCT AU BID PRN for ITCHING, (Reported) Ondansetron (Ondansetron Odt) 4 Mg Tab.rapdis, 4 MG PO Q6H PRN for NAUSEA OR VOMITING, (Reported) Sucralfate (Carafate) 1 Gm Tablet, 1 GM PO BID PRN for DISCOMFORT, (Reported) Allergies Coded Allergies: ciprofloxacin (Verified Allergy, Mild, RASH, 01/28/19) Contrast Media (Verified Allergy, Unknown, X-RAY DYE, 07/09/09) rofecoxib (Verified Allergy, Unknown, 01/28/19) albuterol (Verified Adverse Reaction, Intermediate, DIFFICULTY BREATHING, 01/28/19) atorvastatin (Verified Adverse Reaction, Intermediate, HEART PALPITATIONS, 01/28/19) ipratropium (Verified Adverse Reaction, Intermediate, DIFFICULTY BREATHING, 01/28/19) gabapentin (Verified Adverse Reaction, Mild, DROWSINESS, 01/28/19) niacin (Verified Adverse Reaction, Mild, FLUSHING, 01/28/19) NELLY SEGOVIA MD Jan 30, 2019 12:46
== END 2019-01-30 12:18 | disposition home or self-care (01) | DRG 312 ==
LOC: EDBD 16:05 → M ED 16:05 → M ED INP 19:10 → M PCU 20:51
PROVIDERS: ADMIT Internal Medicine; ATTEND Internal Medicine
DX: I95.1 Orthostatic hypotension (principal); I35.0 Nonrheumatic aortic (valve) stenosis; I12.9 Hypertensive chronic kidney disease with stage 1 through stage 4 chronic kidney disease, or unspecified chronic kidney disease; I49.9 Cardiac arrhythmia, unspecified; D32.0 Benign neoplasm of cerebral meninges; E78.5 Hyperlipidemia, unspecified; E07.9 Disorder of thyroid, unspecified; K74.3 Primary biliary cirrhosis; K21.9 Gastro-esophageal reflux disease without esophagitis; E66.9 Obesity, unspecified; M85.80 Other specified disorders of bone density and structure, unspecified site; N18.3 Chronic kidney disease, stage 3 (moderate); Z68.36 Body mass index [BMI] 36.0-36.9, adult; F41.9 Anxiety disorder, unspecified; S80.02XA Contusion of left knee, initial encounter; X58.XXXA Exposure to other specified factors, initial encounter; Y92.89 Other specified places as the place of occurrence of the external cause; Z90.49 Acquired absence of other specified parts of digestive tract; Z90.79 Acquired absence of other genital organ(s)

== ENCOUNTER → 2019-02-07 | Outpatient (REF) | payer MEDICARE ==
[~2019-02-07] MED LIST changes: +ACET325C5 PO; +ALL10TAB29 PO; +AMLO2.5T3 PO; +ASPI81TA85 PO; +BIOT1000 PO; +BIOT10009 PO; +CARA1TAB6 PO; +CENT1TAB PO; +DULO1CAP5 PO; +FLUO20CA19 PO; +FLUT11IN INH; +GLUC750T13 PO; +HM C500T3 PO; +LORA-622 PO; +LOSA100T50 PO; +MAGN400C2 PO; +MAGN400T2 PO; +METO1TAB32 PO; +MOME0.1S AU; +NASA1SPR NARES; +OCUVTAB4 PO; +OMEG12004 PO; +ONDA4TAB6 PO; +OPCOSOL OU; +PATA0.2S OU; +SIMV40TA20 PO; +URSO300C3 PO; +VITA100066 PO; +ZANT150T40 PO
[2019-02-07 15:54] LABS: BASO % 0.5 % (0.0-1.0); EOS # 0.4 10^3/uL (0.0-0.5); EOS % 5.2 % (0.0-3.0); HEMATOCRIT 35.8 % (36.0-47.0); HEMOGLOBIN 11.2 g/dl (12.0-15.5); LYMPH # 1.6 10^3/uL (1.5-5.0); MEAN CORPUSCULAR HEMOGLOBIN 30.1 pg (27.0-33.0); MEAN CORPUSCULAR HGB CONC 31.3 g/dl (32.0-36.5); MEAN CORPUSCULAR VOLUME 96.2 fl (80.0-96.0); MONO # 0.8 10^3/uL (0.0-0.8); MONO % 10.2 % (0.0-5.0); NEUTROPHILS # 5.1 10^3/uL (1.5-8.5); NEUTROPHILS % 63.9 % (36.0-66.0); PLATELET COUNT, AUTOMATED 345 10^3/uL (150-450); RED BLOOD COUNT 3.72 10^6/uL (4.00-5.40)
[2019-02-07 20:31] LABS: ERYTHROCYTE SEDIMENTATION RATE 69 mm/hr (0-30)
== END ==
LOC: M LABDRAW1 15:24
PROVIDERS: ATTEND Physician Assistant
DX: M25.462 Effusion, left knee (principal)

== ENCOUNTER → 2019-02-19 | Outpatient (REF) | payer MEDICARE | LOC: M LAB REF 15:27 | PROVIDERS: ATTEND Internal Medicine Endocrinology, Diabetes & Metabolism | DX: E04.1 Nontoxic single thyroid nodule (principal) ==

== ENCOUNTER → 2019-04-18 | Outpatient (CLI) | payer MEDICARE ==
[~2019-04-18] MED LIST changes: -FLUO20CA19 PO; +FLUO20CA22 PO
[2019-04-18 10:25] LABS: ALBUMIN 3.8 GM/DL (3.2-5.2); BILIRUBIN,TOTAL 0.4 MG/DL (0.2-1.0); CALCIUM LEVEL 9.6 MG/DL (8.8-10.2); CHOLESTEROL RISK RATIO 4.888 (<5); CREATININE FOR GFR 1.29 MG/DL (0.55-1.30); GLOMERULAR FILTRATION RATE 41.9 (>32); MAGNESIUM LEVEL 2.2 MG/DL (1.8-2.4); TOTAL PROTEIN 7.4 GM/DL (6.4-8.2)
== END ==
LOC: M PLALAB 08:38
PROVIDERS: ATTEND Internal Medicine
DX: R73.01 Impaired fasting glucose (principal); E78.00 Pure hypercholesterolemia, unspecified; K74.3 Primary biliary cirrhosis; I10 Essential (primary) hypertension

== ENCOUNTER → 2019-10-22 | Outpatient (REF) | payer MEDICARE ==
[~2019-10-22] MED LIST changes: -ALL10TAB29 PO; -ASPI81TA85 PO; +ASPI81TA86 PO; +CETI-24 PO; +OLOP2.5D3 OU; -PATA0.2S OU
[2019-10-22 12:14] LABS: HEMOGLOBIN A1c 6.8 %
[2019-10-22 12:18] LABS: ALBUMIN 3.8 GM/DL (3.2-5.2); BILIRUBIN,TOTAL 0.4 MG/DL (0.2-1.0); CALCIUM LEVEL 9.5 MG/DL (8.8-10.2); CHOLESTEROL RISK RATIO 4.465 (<5); CREATININE FOR GFR 1.31 MG/DL (0.55-1.30); GLOMERULAR FILTRATION RATE 41.1 (>32); MAGNESIUM LEVEL 2.3 MG/DL (1.8-2.4); POTASSIUM SERUM 4.5 MEQ/L (3.5-5.1); TOTAL PROTEIN 7.9 GM/DL (6.4-8.2)
[2019-10-22 13:12] LABS: TOTAL 25(OH) VITAMIN D 25.8 NG/ML (30.0-100.0)
== END ==
LOC: M PLALAB 11:32
PROVIDERS: ATTEND Internal Medicine
DX: I12.9 Hypertensive chronic kidney disease with stage 1 through stage 4 chronic kidney disease, or unspecified chronic kidney disease (principal); K74.3 Primary biliary cirrhosis; E11.9 Type 2 diabetes mellitus without complications; R73.01 Impaired fasting glucose; E55.9 Vitamin D deficiency, unspecified; E78.00 Pure hypercholesterolemia, unspecified

== ENCOUNTER → 2019-10-24 | Outpatient (REF) | payer MEDICARE ==
[2019-10-24 14:51] LABS: CREATININE, URINE 31.3 MG/DL; MALB URINE SIEMENS 6.8 MG/L; MAU/CREAT RATIO 21.7 MCG/MG (0.0-30.0)
== END ==
LOC: M SFHCPLAZ 13:41
PROVIDERS: ATTEND Internal Medicine
DX: I12.9 Hypertensive chronic kidney disease with stage 1 through stage 4 chronic kidney disease, or unspecified chronic kidney disease (principal); K74.3 Primary biliary cirrhosis; E11.9 Type 2 diabetes mellitus without complications

== ENCOUNTER → 2019-10-29 | Outpatient (CLI) | payer MEDICARE ==
--- NOTE | 2019-10-30 15:10 | REPMRS ---
Patient History The patient states she has not had a clinical breast exam in over a year. Family history of throat cancer in brother, lung cancer in father. Digital Woman Screen Mammo: October 29, 2019 - Exam #: [id number] Bilateral CC and MLO view(s) were taken. Technologist: Hilda Ramos, Technologist Prior study comparison: September 30, 2016, bilateral digital woman screen mammo, performed at [facility]. December 06, 2013, bilateral digital woman screen mammo, performed at [facility]. FINDINGS: There are scattered fibroglandular densities. The Volpara volumetric breast density category is:B. There has been no change in the appearance of the mammogram from the prior studies. There is a mild amount of scattered fibroglandular density which is fairly symmetric. There is no interval development of dominant mass, architectural distortion, or grouped microcalcification suggestive of malignancy. 3-D tomosynthesis shows no additional findings. Assessment: BI-RADS/ACR category 1 mammogram. Negative Mammogram. Recommendation Routine screening mammogram of both breasts in 1 year (for women over age 40). This mammogram was interpreted with the aid of an FDA-approved computer-aided dectection system. Electronically Signed By: Allen Altamirano MD 10/30/19 [id number]
--- NOTE | 2019-11-18 13:08 | DEXA ---
AP SPINE L1 - L4 1.293 0.8 2.7 LT FEMUR TOTAL 0.917 -0.7 1.6 LT NECK 0.818 -1.6 0.8 RT FEMUR TOTAL 0.911 -0.8 1.5 RT NECK 0.798 -1.7 0.7 TOTAL BODY TOTAL OTHER COMMENTS: Normal bone densitometry of the spine. There is low bone density of the hips. The density of the left hip has decreased 2.9% since 12/04/2013. The density of the right hip has decreased 4.4% since 12/04/2013. The increased density of the spine does represent a significant change. The decreased density of the left hip does represent a significant change. The decreased density of the right hip does represent significant change. The density of the spine is increased 24.6% since the initial exam on 12/01/1999. The increased 36.4% since the most recent exam on 12/04/2013. FOLLOW-UP: Recommendation for the next bone density exam: 2 years. MORGAN
== END ==
LOC: M WHC 12:51
PROVIDERS: ATTEND Internal Medicine
DX: Z12.31 Encounter for screening mammogram for malignant neoplasm of breast (principal); M81.0 Age-related osteoporosis without current pathological fracture

== ENCOUNTER → 2020-01-22 | Outpatient (CLI) | payer MEDICARE ==
[~2020-01-22] MED LIST changes: +ACET-861 PO; +ASPI81TA26 PO; +AZEL1SPR3 NARES; +BREO1INH PO; +CALCTAB38 PO; +CEPH25SS PO; +CETI10CA2 PO; +CHRO400T4 PO; +CINN500C12 PO; +D31000TA2 PO; +MOMETASONE AU; +ROCA0.25 PO
== END ==
LOC: M LABSMTC 11:29
PROVIDERS: ATTEND Anesthesiology
DX: Z01.812 Encounter for preprocedural laboratory examination (principal)

== ENCOUNTER 2020-01-27 08:32 | Day surgery (SDC) | payer MEDICARE ==
--- NOTE | 2020-01-23 15:10 | HPE ---
HISTORY AND PHYSICAL DATE OF ADMISSION: 01/27/2020 CHIEF COMPLAINT: Right great toe bunion deformity. HISTORY OF PRESENT ILLNESS: Berenice is a pleasant 84-year-old female with progressively worsening right great toe bunion deformity. She has failed to improve with conservative treatment. She has elected for surgery for her continued symptoms. She has pain with weightbearing activities and her activities of daily living. X-rays of her foot are notable for bunion deformity at the great toe. She has consented for a right bunionectomy by Dr. Clair Awad. Medical optimization was performed by Dr. Guillen. ALLERGIES: Cipro, Combivent, Lipitor, Neurontin, Niacin and Vioxx. CURRENT MEDICATIONS: 1. [place]-3 fatty acids 1,200 mg twice a day. 2. Glucosamine and Chondroitin 1,200 mg twice a day. 3. AREDS2 one twice a day. 4. Centrum Silver once a day. 5. Baby aspirin once a day. 6. Magnesium 400 mg twice a day. 7. Zantac 10 mg once a day. 8. Amlodipine 2.5 mg a day. 9. Losartan 100 mg a day. 10.Metoprolol 12.5 mg a day. 11.Hydrochlorothiazide 12.5 mg once every other day. 12.Simvastatin 40 mg a day. 13.Ursodiol 300 mg one in the morning and two in the afternoon. 14.Duloxetine __ 30 mg once a day. 15.Ondansetron 4 mg as needed for nausea. 16.Flovent HFA 40 mcg two puffs twice daily. 17.Tylenol 325 mg as needed. 18.Extra Strength Tylenol 500 mg two tablets as needed. 19.Cranberry tablets two tablets once a day. 20. ear drops 0.1% twice a day. 21.Pataday eye drops once a day. 22.Opcon-A eye drops once a day. 23.Refresh eye drops 2-3 times a day. 24.Nasacort nasal spray once a day. PAST MEDICAL HISTORY: Includes diabetes type 2, hypertension, lung, liver and kidney issues and high cholesterol. PAST SURGICAL HISTORY: Includes tonsillectomy, appendectomy, hysterectomy, cholecystectomy, right knee arthroscopy and D and C's. SOCIAL HISTORY: Berenice is retired. She does not smoke. Does not drink alcohol. FAMILY HISTORY: Noncontributory. REVIEW OF SYSTEMS: This patient denies chest pain, heart palpitations, cough, wheezing, difficulty breathing and shortness of breath. She denies abdominal pain, nausea, vomiting, diarrhea or constipation. She denies recent upper respiratory infection or urinary tract infection symptoms. She does complain of persistent pain in the right foot. PHYSICAL EXAMINATION: GENERAL: She is well-nourished, well developed, in no acute distress, alert female patient. She ambulates with a moderate limp, favoring her right lower extremity. She is using a cane. VITAL SIGNS: She is 5' 0" tall, weighs 170.4 pounds, temperature 96.2, blood pressure 120/86, pulse 68 and respirations 14. NECK: Supple without adenopathy or jugular venous distention. LUNGS: Clear to auscultation, without rales or wheeze. HEART: Regular rate and rhythm. ABDOMEN: Bowel sounds were present. EXTREMITIES: Examination of the foot revealed intact skin. She had obvious bunion deformity and tenderness to palpation in the area. Otherwise, the foot is neurovascularly intact. LABORATORY DATA: Sodium 139, potassium 4.5, BUN 33, creatinine 1.31, glucose 127. IMPRESSION: Symptomatic right great bunion deformity. PLAN: Consented for a right bunionectomy by Dr. Clair Awad.
[~2020-01-27] VITALS: Ht 152.4 cm; Wt 79.1 kg
[2020-01-27] MEDS ORDERED: MIDAZOLAM INJ 2MG/2ML VIAL (J2250 PER 1MG) As Ordered ONE (09:01)
[2020-01-27] MEDS ORDERED: fentaNYL 100 MCG/2 ML INJECTION (J3010) As Ordered ONE (09:02)
[2020-01-27] MEDS ORDERED: ACETAMINOPHEN 1000MG 100ML IV BTL (OFIRMEV) (J0131 PER 10MG) As Ordered ONE (09:03)
[2020-01-27] MEDS ORDERED: ROCURONIUM BROMIDE 50 MG/5 ML VIAL As Ordered ONE (09:03)
[2020-01-27] MEDS ORDERED: PHENYLephrine HCL 500 MCG/5 ML (100MCG/ML) SYRINGE (J2370) As Ordered ONE (09:03)
[2020-01-27] MEDS ORDERED: LIDOCAINE 2% 100MG/5ML SDV (FOR ANES.) As Ordered ONE (09:03)
[2020-01-27] MEDS ORDERED: SUGAMMADEX SODIUM 500 MG/5 ML VIAL (BRIDION) As Ordered ONE (09:03)
[2020-01-27] MEDS ORDERED: ePHEDrine SULFATE 25 MG/5 ML(5MG/ML) SYRINGE As Ordered ONE (09:03)
[2020-01-27] MEDS ORDERED: ONDANSETRON 4MG/2ML VIAL As Ordered ONE (09:03)
[2020-01-27] MEDS ORDERED: dexameTHASONE 4 MG/ML 1ML VIAL (J1100 PER 1MG) As Ordered ONE (09:03)
[2020-01-27] MEDS ORDERED: propofoL 200 MG/20 ML VIAL As Ordered ONE (09:08)
[2020-01-27] MEDS ORDERED: ceFAZolin SOD 2 GM in IV 1 EA IV ONE (09:45)
[2020-01-27] MEDS ORDERED: BUPIVACAINE HCL 0.5% 30 ML VIAL As Ordered ONE (12:05)
[2020-01-27] MEDS ORDERED: GLYCOPYRROLATE INJ 0.2 MG/ML 2 ML VIAL As Ordered ONE (12:52)
[2020-01-27] MEDS ORDERED: LR 1,000 ML IV SCH ×2 (14:15→14:30)
[2020-01-27] MEDS ORDERED: fentaNYL 100 MCG/2 ML INJECTION (J3010) IV PRN (14:15)
[2020-01-27] MEDS ORDERED: ONDANSETRON 4MG/2ML VIAL IV PRN (14:15)
[2020-01-27] MEDS ORDERED: oxyCODONE 5MG TAB PO PRN (14:15)
--- NOTE | 2020-01-27 14:20 | REP ---
INDICATION: RIGHT GREAT TOE DIFORMITY. COMPARISON: None. TECHNIQUE: Three views. 39 seconds of fluoroscopy time is reported. FINDINGS: A sequence of 3 last image hold fluoroscopically obtained spot radiographs of the right great toe document pinning of the IP joint. IMPRESSION: Procedural imaging. <Electronically signed by Allen Altamirano > 01/27/20 [id number]
[2020-01-27 16:25] VITALS: BP 137/83
== END 2020-01-27 16:25 | disposition home or self-care (01) ==
LOC: M SDC 08:32
PROVIDERS: ATTEND Orthopaedic Surgery
DX: M21.611 Bunion of right foot (principal); E11.9 Type 2 diabetes mellitus without complications; I10 Essential (primary) hypertension; E78.00 Pure hypercholesterolemia, unspecified; Z91.041 Radiographic dye allergy status; Z88.8 Allergy status to other drugs, medicaments and biological substances; Z88.1 Allergy status to other antibiotic agents; Z79.82 Long term (current) use of aspirin; Z79.899 Other long term (current) drug therapy
CPT/HCPCS: 20900; 28755; 76000; C1713; C1762; J0131; J0690; J1100; J2250; J2370; J2405; J3010

== ENCOUNTER → 2020-05-11 | Outpatient (REF) | payer MEDICARE ==
[2020-05-11 12:48] LABS: ALBUMIN 3.8 GM/DL (3.2-5.2); BILIRUBIN,TOTAL 0.3 MG/DL (0.2-1.0); CALCIUM LEVEL 9.8 MG/DL (8.8-10.2); CHOLESTEROL RISK RATIO 4.682 (<5); CREATININE FOR GFR 1.37 MG/DL (0.55-1.30); POTASSIUM SERUM 4.7 MEQ/L (3.5-5.1); TOTAL PROTEIN 7.4 GM/DL (6.4-8.2)
[2020-05-11 12:55] LABS: MALB URINE SIEMENS 51.6 MG/L; MAU/CREAT RATIO 47.3 MCG/MG (0.0-30.0)
[2020-05-11 13:20] LABS: HEMOGLOBIN A1c 6.8 %
== END ==
LOC: M PLALAB 09:49
PROVIDERS: ATTEND Internal Medicine
DX: K74.3 Primary biliary cirrhosis (principal); I12.9 Hypertensive chronic kidney disease with stage 1 through stage 4 chronic kidney disease, or unspecified chronic kidney disease; E11.9 Type 2 diabetes mellitus without complications; E78.00 Pure hypercholesterolemia, unspecified

== ENCOUNTER → 2020-09-03 | Outpatient (REF) | payer MEDICARE ==
[~2020-09-03] MED LIST changes: -HM C500T3 PO; +HM C500T4 PO
== END ==
LOC: M LAB REF 17:20
PROVIDERS: ATTEND Internal Medicine Nephrology
DX: E83.42 Hypomagnesemia (principal)

== ENCOUNTER → 2020-11-03 | Outpatient (CLI) | payer MEDICARE ==
[2020-11-03 14:05] LABS: ALBUMIN 3.7 GM/DL (3.2-5.2); BILIRUBIN,TOTAL 0.4 MG/DL (0.2-1.0); CALCIUM LEVEL 9.9 MG/DL (8.8-10.2); CHOLESTEROL RISK RATIO 4.375 (<5); CREATININE FOR GFR 1.38 MG/DL (0.55-1.30); GLOMERULAR FILTRATION RATE 38.6 (>32); POTASSIUM SERUM 4.6 MEQ/L (3.5-5.1); TOTAL PROTEIN 7.6 GM/DL (6.4-8.2)
== END ==
LOC: M PLALAB 10:16
PROVIDERS: ATTEND Internal Medicine
DX: K74.3 Primary biliary cirrhosis (principal); I12.9 Hypertensive chronic kidney disease with stage 1 through stage 4 chronic kidney disease, or unspecified chronic kidney disease; N18.9 Chronic kidney disease, unspecified; E11.22 Type 2 diabetes mellitus with diabetic chronic kidney disease; E78.00 Pure hypercholesterolemia, unspecified

== ENCOUNTER → 2021-03-04 | Outpatient (CLI) | payer MEDICARE ==
[~2021-03-04] MED LIST changes: +LOSA100T45 PO; -LOSA100T50 PO
[2021-03-04 12:28] LABS: CREATININE FOR GFR 1.4 MG/DL (0.55-1.30)
== END ==
LOC: M RAD 11:04
PROVIDERS: ATTEND Ophthalmology
DX: I65.23 Occlusion and stenosis of bilateral carotid arteries (principal); H34.239 Retinal artery branch occlusion, unspecified eye

== ENCOUNTER → 2021-03-17 | Outpatient (CLI) | payer MEDICARE ==
[~2021-03-17] MED LIST changes: +PROHANCE 279.3MG/ML 5ML VIAL ONE
== END ==
LOC: M PLAIMG 10:29
PROVIDERS: ATTEND Ophthalmology
DX: H34.239 Retinal artery branch occlusion, unspecified eye (principal); H54.61 Unqualified visual loss, right eye, normal vision left eye; R90.82 White matter disease, unspecified; I65.22 Occlusion and stenosis of left carotid artery; I66.02 Occlusion and stenosis of left middle cerebral artery
CPT/HCPCS: 70544; 70553; A9576

== ENCOUNTER → 2021-05-05 | Outpatient (CLI) | payer MEDICARE ==
[~2021-05-05] MED LIST changes: -D31000TA2 PO; -PROHANCE 279.3MG/ML 5ML VIAL ONE; +VITA100093 PO
[2021-05-05 14:26] LABS: BILIRUBIN,TOTAL 0.4 MG/DL (0.2-1.0); CALCIUM LEVEL 10.5 MG/DL (8.8-10.2); CHOLESTEROL RISK RATIO 4.595 (<5); CREATININE FOR GFR 1.35 MG/DL (0.55-1.30); GLOMERULAR FILTRATION RATE 39.6 (>32); MAGNESIUM LEVEL 2.1 MG/DL (1.8-2.4); POTASSIUM SERUM 4.6 MEQ/L (3.5-5.1); TOTAL PROTEIN 7.5 GM/DL (6.4-8.2)
[2021-05-05 14:45] LABS: HEMOGLOBIN A1c 6.9 %
== END ==
LOC: M PLALAB 11:26
PROVIDERS: ATTEND Internal Medicine
DX: I12.9 Hypertensive chronic kidney disease with stage 1 through stage 4 chronic kidney disease, or unspecified chronic kidney disease (principal); E11.9 Type 2 diabetes mellitus without complications; E78.00 Pure hypercholesterolemia, unspecified; K74.3 Primary biliary cirrhosis

== ENCOUNTER → 2021-11-11 | Outpatient (CLI) | payer MEDICARE ==
[2021-11-11 14:21] LABS: HEMATOCRIT 40.6 % (36.0-47.0); HEMOGLOBIN 12.9 g/dl (12.0-15.5); MEAN CORPUSCULAR HEMOGLOBIN 30.4 pg (27.0-33.0); MEAN CORPUSCULAR HGB CONC 31.8 g/dl (32.0-36.5); MEAN CORPUSCULAR VOLUME 95.8 fl (80.0-96.0); PLATELET COUNT, AUTOMATED 270 10^3/uL (150-450); RED BLOOD COUNT 4.24 10^6/uL (4.00-5.40); WHITE BLOOD COUNT 6.5 10^3/uL (4.0-10.0)
[2021-11-11 14:55] LABS: HEMOGLOBIN A1c 6.7 %
[2021-11-11 15:07] LABS: ALBUMIN 3.9 GM/DL (3.2-5.2); BILIRUBIN,TOTAL 0.3 MG/DL (0.2-1.0); C REACTIVE PROTEIN QUANTITATIV 0.43 MG/DL (0.00-0.30); CALCIUM LEVEL 9.8 MG/DL (8.8-10.2); CHOLESTEROL RISK RATIO 4.973 (<5); CREATININE FOR GFR 1.48 MG/DL (0.55-1.30); FREE T4 0.64 NG/DL (0.76-1.46); GLOMERULAR FILTRATION RATE 35.5 (>32); POTASSIUM SERUM 4.1 MEQ/L (3.5-5.1); THYROID STIMULATING HORMONE 2.21 uIU/ML (0.358-3.740); TOTAL PROTEIN 7.3 GM/DL (6.4-8.2)
[2021-11-11 15:27] LABS: TOTAL 25(OH) VITAMIN D 40.5 NG/ML (30.0-100.0)
== END ==
LOC: M PLALAB 10:21
PROVIDERS: ATTEND Internal Medicine Hematology
DX: E11.9 Type 2 diabetes mellitus without complications (principal)

== ENCOUNTER → 2022-05-10 | Outpatient (CLI) | payer MEDICARE ==
[2022-05-10 14:44] LABS: HEMATOCRIT 42.7 % (36.0-47.0); HEMOGLOBIN 13.6 g/dl (12.0-15.5); MEAN CORPUSCULAR HEMOGLOBIN 30.1 pg (27.0-33.0); MEAN CORPUSCULAR HGB CONC 31.9 g/dl (32.0-36.5); MEAN CORPUSCULAR VOLUME 94.5 fl (80.0-96.0); PLATELET COUNT, AUTOMATED 274 10^3/uL (150-450); RED BLOOD COUNT 4.52 10^6/uL (4.00-5.40); WHITE BLOOD COUNT 6.8 10^3/uL (4.0-10.0)
[2022-05-10 14:49] LABS: C REACTIVE PROTEIN QUANTITATIV < 0.40 MG/DL (<1.0)
[2022-05-10 14:54] LABS: ALKALINE PHOSPHATASE 136 U/L (46-116); ALT/SGPT 26 U/L (7.0-40); AST/SGOT 28 U/L (<34); BILIRUBIN,TOTAL 0.6 MG/DL (0.3-1.2); BLOOD UREA NITROGEN 34 MG/DL (9-23); CALCIUM LEVEL 9.9 MG/DL (8.3-10.6); CARBON DIOXIDE LEVEL 26 MMOL/L (20-31); CHLORIDE LEVEL 107 MMOL/L (98-107); CHOLESTEROL LEVEL 193 MG/DL (<200); CHOLESTEROL RISK RATIO 4.54 (<5); CREATININE FOR GFR 1.16 MG/DL (0.55-1.30); FREE T4 0.74 NG/DL (0.89-1.76); GLUCOSE, FASTING 133 MG/DL (74-106); HDL CHOLESTEROL 42.5 MG/DL (>40); LDL CHOLESTEROL 100.7 MG/DL (<100); NON-HDL-C 150.5 MG/DL; POTASSIUM SERUM 5.1 MMOL/L (3.5-5.1); SODIUM LEVEL 137 MMOL/L (136-145); TOTAL 25(OH) VITAMIN D 41.7 NG/ML (20.0-100.0); TOTAL PROTEIN 7.3 G/DL (5.7-8.2); TRIGLYCERIDES LEVEL 249 MG/DL (<150); VITAMIN B12 LEVEL 417 PG/ML (211-911)
[2022-05-10 15:37] LABS: HEMOGLOBIN A1c 6.5 % (4.0-6.0)
== END ==
LOC: M PLALAB 10:10
PROVIDERS: ATTEND Internal Medicine Hematology
DX: E11.9 Type 2 diabetes mellitus without complications (principal)

== ENCOUNTER → 2022-06-03 | Outpatient (CLI) | payer MEDICARE | LOC: M WHC 12:56 | PROVIDERS: ATTEND Internal Medicine Hematology | DX: Z13.820 Encounter for screening for osteoporosis (principal); M85.89 Other specified disorders of bone density and structure, multiple sites ==

== ENCOUNTER → 2022-10-25 | Outpatient (CLI) | payer MEDICARE ==
[~2022-10-25] MED LIST changes: -FLUT11IN INH; +FLUT12AE6 INH; -LOSA100T45 PO; +LOSA100T46 PO
== END ==
LOC: M SOG 11:26
PROVIDERS: ATTEND Orthopaedic Surgery Hand Surgery
DX: M17.11 Unilateral primary osteoarthritis, right knee (principal)

== ENCOUNTER → 2023-01-19 | Outpatient (CLI) | payer MEDICARE | LOC: M PLAIMG 14:03 | PROVIDERS: ATTEND Physician Assistant | DX: R22.31 Localized swelling, mass and lump, right upper limb (principal); M19.011 Primary osteoarthritis, right shoulder ==

== ENCOUNTER → 2023-01-23 | Outpatient (CLI) | payer MEDICARE | LOC: M RAD 11:21 | PROVIDERS: ATTEND Physician Assistant | DX: R22.31 Localized swelling, mass and lump, right upper limb (principal) ==

== ENCOUNTER → 2023-05-09 | Outpatient (CLI) | payer MEDICARE ==
[2023-05-09 12:08] LABS: HEMATOCRIT 42.3 % (36.0-47.0); HEMOGLOBIN 13.7 g/dl (12.0-15.5); MEAN CORPUSCULAR HEMOGLOBIN 30.6 pg (27.0-33.0); MEAN CORPUSCULAR HGB CONC 32.4 g/dl (32.0-36.5); MEAN CORPUSCULAR VOLUME 94.4 fl (80.0-96.0); PLATELET COUNT, AUTOMATED 262 10^3/uL (150-450); RED BLOOD COUNT 4.48 10^6/uL (4.00-5.40); WHITE BLOOD COUNT 6.9 10^3/uL (4.0-10.0)
[2023-05-09 12:14] LABS: HEMOGLOBIN A1c 7.3 % (4.0-6.0)
[2023-05-09 12:36] LABS: C REACTIVE PROTEIN QUANTITATIV < 0.40 MG/DL (<1.0)
[2023-05-09 12:38] LABS: ALBUMIN 3.9 G/DL (3.2-5.2); ALKALINE PHOSPHATASE 124 U/L (46-116); ALT/SGPT 37 U/L (7.0-40); AST/SGOT 34 U/L (<34); BILIRUBIN,TOTAL 0.6 MG/DL (0.3-1.2); BLOOD UREA NITROGEN 34 MG/DL (9-23); CARBON DIOXIDE LEVEL 28 MMOL/L (20-31); CHLORIDE LEVEL 104 MMOL/L (98-107); CHOLESTEROL LEVEL 164 MG/DL (<200); CHOLESTEROL RISK RATIO 4.16 (<5); CREATININE FOR GFR 1.24 MG/DL (0.55-1.30); FREE T4 0.81 NG/DL (0.89-1.76); GLOMERULAR FILTRATION RATE 43.5 (>32); GLUCOSE, FASTING 165 MG/DL (74-106); HDL CHOLESTEROL 39.4 MG/DL (>40); LDL CHOLESTEROL 59.4 MG/DL (<100); NON-HDL-C 124.6 MG/DL; POTASSIUM SERUM 4.7 MMOL/L (3.5-5.1); SODIUM LEVEL 139 MMOL/L (136-145); THYROID STIMULATING HORMONE 3.811 uIU/ML (0.55-4.78); TOTAL 25(OH) VITAMIN D 24.2 NG/ML (20.0-100.0); TOTAL PROTEIN 7.3 G/DL (5.7-8.2); TRIGLYCERIDES LEVEL 326 MG/DL (<150); VITAMIN B12 LEVEL 502 PG/ML (211-911)
[2023-05-10 15:44] LABS: CALCIUM LEVEL 9.8 MG/DL (8.3-10.6)
== END ==
LOC: M PLALAB 08:38
PROVIDERS: ATTEND Internal Medicine Hematology
DX: E11.9 Type 2 diabetes mellitus without complications (principal); Z79.899 Other long term (current) drug therapy

== ENCOUNTER → 2023-05-10 | Outpatient (CLI) | payer MEDICARE ==
[2023-05-10 14:53] LABS: MAGNESIUM LEVEL 2.2 MG/DL (1.8-2.4); PHOSPHORUS LEVEL 3.3 MG/DL (2.4-5.1)
[2023-05-10 17:54] LABS: PTH INTACT 164.2 PG/ML (18.5-88.0)
== END ==
LOC: M LAB 13:31 → M PLALAB 13:31
PROVIDERS: ATTEND Internal Medicine Hematology
DX: E83.51 Hypocalcemia (principal)

== ENCOUNTER → 2023-06-23 | Outpatient (REF) | payer MEDICARE | LOC: M SFHCWAGY 12:57 | PROVIDERS: ATTEND Nurse Practitioner Family | DX: L90.0 Lichen sclerosus et atrophicus (principal) ==

== ENCOUNTER → 2023-09-07 | Outpatient (REF) | payer MEDICARE ==
[~2023-09-07] MED LIST changes: +FLUO-365 PO; -FLUO20CA22 PO; +ONDA-282 PO; -ONDA4TAB6 PO
[2023-09-07 19:37] LABS: ALBUMIN 4.1 G/DL (3.2-5.2); BILIRUBIN,DIRECT 0.1 MG/DL (<0.4); BILIRUBIN,TOTAL 0.6 MG/DL (0.3-1.2); TOTAL PROTEIN 7.1 G/DL (5.7-8.2)
== END ==
LOC: M LAB REF 16:58
PROVIDERS: ATTEND Nurse Practitioner Family
DX: K74.3 Primary biliary cirrhosis (principal)

== ENCOUNTER → 2023-09-19 | Outpatient (CLI) | payer MEDICARE | LOC: M PLAIMG 14:45 | PROVIDERS: ATTEND Internal Medicine Cardiovascular Disease | DX: I35.0 Nonrheumatic aortic (valve) stenosis (principal); I50.32 Chronic diastolic (congestive) heart failure; R94.31 Abnormal electrocardiogram [ECG] [EKG]; I27.20 Pulmonary hypertension, unspecified ==

== ENCOUNTER → 2023-10-11 | Outpatient (CLI) | payer MEDICARE ==
[2023-10-11 15:40] LABS: CREATININE FOR GFR 1.3 MG/DL (0.55-1.30); GLOMERULAR FILTRATION RATE 41.1 (>32)
== END ==
LOC: M PLALAB 12:45
PROVIDERS: ATTEND Internal Medicine Cardiovascular Disease
DX: I35.0 Nonrheumatic aortic (valve) stenosis (principal)

== ENCOUNTER → 2023-11-08 | Outpatient (CLI) | payer MEDICARE ==
[2023-11-08 18:30] LABS: BASO % 0.6 % (0.0-1.0); EOS # 0.4 10^3/uL (0.0-0.5); HEMOGLOBIN 13.2 g/dl (12.0-15.5); LYMPH # 1.6 10^3/uL (1.5-5.0); LYMPH % 23.2 % (24.0-44.0); MEAN CORPUSCULAR HEMOGLOBIN 30.1 pg (27.0-33.0); MEAN CORPUSCULAR HGB CONC 32.2 g/dl (32.0-36.5); MEAN CORPUSCULAR VOLUME 93.6 fl (80.0-96.0); MONO # 0.7 10^3/uL (0.0-0.8); MONO % 9.9 % (2.0-8.0); NEUTROPHILS # 4.1 10^3/uL (1.5-8.5); NEUTROPHILS % 59.9 % (36.0-66.0); PLATELET COUNT, AUTOMATED 238 10^3/uL (150-450); RED BLOOD COUNT 4.38 10^6/uL (4.00-5.40); WHITE BLOOD COUNT 6.8 10^3/uL (4.0-10.0)
[2023-11-08 18:52] LABS: ALBUMIN 3.9 G/DL (3.2-5.2); BILIRUBIN,TOTAL 0.5 MG/DL (0.3-1.2); CALCIUM LEVEL 10.2 MG/DL (8.3-10.6); CREATININE FOR GFR 1.14 MG/DL (0.55-1.30); GLOMERULAR FILTRATION RATE 47.8 (>32); POTASSIUM SERUM 4.9 MMOL/L (3.5-5.1); TOTAL PROTEIN 7.5 G/DL (5.7-8.2)
== END ==
LOC: M PLALAB 15:05
PROVIDERS: ATTEND Internal Medicine Cardiovascular Disease
DX: I50.32 Chronic diastolic (congestive) heart failure (principal); I35.0 Nonrheumatic aortic (valve) stenosis; I25.10 Atherosclerotic heart disease of native coronary artery without angina pectoris; I11.0 Hypertensive heart disease with heart failure

== ENCOUNTER → 2023-11-08 | Outpatient (CLI) | payer MEDICARE ==
[2023-11-08 18:30] LABS: BASO % 0.6 % (0.0-1.0); EOS # 0.5 10^3/uL (0.0-0.5); EOS % 6.3 % (0.0-3.0); HEMATOCRIT 40.7 % (36.0-47.0); HEMOGLOBIN 13.1 g/dl (12.0-15.5); LYMPH # 1.6 10^3/uL (1.5-5.0); LYMPH % 22.8 % (24.0-44.0); MEAN CORPUSCULAR HEMOGLOBIN 30.3 pg (27.0-33.0); MEAN CORPUSCULAR HGB CONC 32.2 g/dl (32.0-36.5); MEAN CORPUSCULAR VOLUME 94.2 fl (80.0-96.0); MONO # 0.8 10^3/uL (0.0-0.8); NEUTROPHILS # 4.2 10^3/uL (1.5-8.5); PLATELET COUNT, AUTOMATED 232 10^3/uL (150-450); RED BLOOD COUNT 4.32 10^6/uL (4.00-5.40); WHITE BLOOD COUNT 7.1 10^3/uL (4.0-10.0)
[2023-11-08 18:52] LABS: HEMOGLOBIN A1c 6.8 % (4.0-6.0)
[2023-11-08 18:54] LABS: C REACTIVE PROTEIN QUANTITATIV < 0.40 MG/DL (<1.0)
[2023-11-08 18:55] LABS: ALBUMIN 3.9 G/DL (3.2-5.2); ALKALINE PHOSPHATASE 150 U/L (46-116); ALT/SGPT 38 U/L (7.0-40); AST/SGOT 31 U/L (<34); BILIRUBIN,TOTAL 0.5 MG/DL (0.3-1.2); BLOOD UREA NITROGEN 33 MG/DL (9-23); CALCIUM LEVEL 10.1 MG/DL (8.3-10.6); CARBON DIOXIDE LEVEL 25 MMOL/L (20-31); CHLORIDE LEVEL 108 MMOL/L (98-107); CHOLESTEROL LEVEL 165 MG/DL (<200); CHOLESTEROL RISK RATIO 3.98 (<5); CREATININE FOR GFR 1.17 MG/DL (0.55-1.30); GLOMERULAR FILTRATION RATE 46.4 (>32); GLUCOSE, FASTING 103 MG/DL (74-106); HDL CHOLESTEROL 41.4 MG/DL (>40); LDL CHOLESTEROL 63.6 MG/DL (<100); NON-HDL-C 123.6 MG/DL; PHOSPHORUS LEVEL 3.6 MG/DL (2.4-5.1); POTASSIUM SERUM 4.9 MMOL/L (3.5-5.1); SODIUM LEVEL 139 MMOL/L (136-145); TOTAL PROTEIN 7.5 G/DL (5.7-8.2); TRIGLYCERIDES LEVEL 300 MG/DL (<150)
[2023-11-08 18:56] LABS: FREE T4 0.89 NG/DL (0.89-1.76); THYROID STIMULATING HORMONE 1.776 uIU/ML (0.55-4.78); TOTAL 25(OH) VITAMIN D 25.5 NG/ML (20.0-100.0)
[2023-11-08 18:57] LABS: VITAMIN B12 LEVEL 482 PG/ML (211-911)
== END ==
LOC: M PLALAB 15:07
PROVIDERS: ATTEND Internal Medicine Hematology
DX: K74.3 Primary biliary cirrhosis (principal); I35.0 Nonrheumatic aortic (valve) stenosis; I12.9 Hypertensive chronic kidney disease with stage 1 through stage 4 chronic kidney disease, or unspecified chronic kidney disease; E78.00 Pure hypercholesterolemia, unspecified; E55.9 Vitamin D deficiency, unspecified; E11.9 Type 2 diabetes mellitus without complications; N25.81 Secondary hyperparathyroidism of renal origin; N18.30 Chronic kidney disease, stage 3 unspecified; M19.90 Unspecified osteoarthritis, unspecified site; M85.80 Other specified disorders of bone density and structure, unspecified site

== ENCOUNTER 2023-11-29 15:20 | Emergency (ER) | payer MEDICARE ==
[~2023-11-29] VITALS: Ht 152.4 cm; Wt 73.6 kg
[2023-11-29] MEDS: ACETAMINOPHEN 500 MG TAB PO ONE (18:11)
[2023-11-29 19:39] VITALS: BP 145/82; TEMP 97.8; O2SAT 98
== END 2023-11-29 19:32 | disposition home or self-care (01) ==
LOC: M ED 15:20
DX: S90.02XA Contusion of left ankle, initial encounter (principal); S90.32XA Contusion of left foot, initial encounter; S93.402A Sprain of unspecified ligament of left ankle, initial encounter; W10.9XXA Fall (on) (from) unspecified stairs and steps, initial encounter; Y92.009 Unspecified place in unspecified non-institutional (private) residence as the place of occurrence of the external cause; Y93.9 Activity, unspecified; Y99.9 Unspecified external cause status; E11.9 Type 2 diabetes mellitus without complications; I10 Essential (primary) hypertension; Z79.82 Long term (current) use of aspirin; Z79.899 Other long term (current) drug therapy; Z88.1 Allergy status to other antibiotic agents; Z88.8 Allergy status to other drugs, medicaments and biological substances; Z91.041 Radiographic dye allergy status

== ENCOUNTER 2024-02-07 20:45 | Emergency (ER) | payer MEDICARE ==
[~2024-02-07] VITALS: Ht 154.9 cm; Wt 75.0 kg
[2024-02-07 21:15] LABS: HEMATOCRIT 40.5 % (36.0-47.0); HEMOGLOBIN 13.3 g/dl (12.0-15.5); MEAN CORPUSCULAR HEMOGLOBIN 30.5 pg (27.0-33.0); MEAN CORPUSCULAR HGB CONC 32.8 g/dl (32.0-36.5); MEAN CORPUSCULAR VOLUME 92.9 fl (80.0-96.0); PLATELET COUNT, AUTOMATED 218 10^3/uL (150-450); RED BLOOD COUNT 4.36 10^6/uL (4.00-5.40); WHITE BLOOD COUNT 8.4 10^3/uL (4.0-10.0)
[2024-02-07 21:28] LABS: INR 1.05
[2024-02-07 21:36] LABS: ALBUMIN 3.9 G/DL (3.2-5.2); BILIRUBIN,TOTAL 0.5 MG/DL (0.3-1.2); CALCIUM LEVEL 9.8 MG/DL (8.3-10.6); CREATININE FOR GFR 1.47 MG/DL (0.55-1.30); GLOMERULAR FILTRATION RATE 35.6 (>32); POTASSIUM SERUM 4.7 MMOL/L (3.5-5.1); TOTAL PROTEIN 7.2 G/DL (5.7-8.2)
[2024-02-08] MEDS: methylPREDNISolone 125MG 2ML VIAL IV ONE (03:11)
[2024-02-08] MEDS: diphenhydrAMINE 50MG/ML VIAL IV STA (03:12)
[2024-02-08 03:15] VITALS: BP 136/81; TEMP 96.8; O2SAT 96
== END 2024-02-08 03:16 | disposition short-term general hospital (02) ==
LOC: M ED 20:45 → EDBD 20:45 → M ED 02-08 03:16
DX: I63.9 Cerebral infarction, unspecified (principal); I12.9 Hypertensive chronic kidney disease with stage 1 through stage 4 chronic kidney disease, or unspecified chronic kidney disease; Z79.82 Long term (current) use of aspirin; Z79.899 Other long term (current) drug therapy; Z91.041 Radiographic dye allergy status; Z88.1 Allergy status to other antibiotic agents; Z88.8 Allergy status to other drugs, medicaments and biological substances
CPT/HCPCS: 70450; 80047; 80053; 85027; 85610; 86850; 86900; 86901; 96374; 96375; 99285; J1200; J2919